=== PATIENT | male | born 1955 | race Caucasian/White ===

== ENCOUNTER 2016-04-25 11:57 | Inpatient (IN) ==
[2016-04-25] MEDS ORDERED: IPRATROPIUM/ALBUTEROL 3 ML AMPUL.NEB NEB ONE (12:02)
[2016-04-25] MEDS ORDERED: methylPREDNISolone SOD SUCC 125 MG/2 ML VIAL IV ONE (12:24)
--- NOTE | 2016-04-25 12:31 | Emergency Department Note ---
SOB HPI - General Chief Complaint: Shortness of Breath/Dyspnea Stated Complaint: Shortness of breath Time Seen by Provider: 04/25/16 12:20 Source: patient, EMS Mode of arrival: EMS Limitations: no limitations - History of Present Illness 60-year-old male with a history of COPD has been seen by his new physician, Dr. Hernandez, and she prescribed a prednisone taper.. He is only using MDI albuterol. These were called as he's had increased shortness of breath. Is given 2 albuterol treatments and patient arrived patient was given a DuoNeb and Solu-Medrol. Patient has been having wheezing his current temperature is 99.1 . She coughing up yellowish-green sputum. pt states he quit tobacco 5 years ago but heavy smoker prior. 40 pack year hx or greater. - Related Data Home Medications Medication Instructions Recorded Confirmed albuterol sulfate INHALATION 12/13/15 04/22/16 mometasone 200 mcg/actuation HFA 200 mcg INHALATION BID g 12/13/15 04/22/16 aerosol inhaler tamsulosin 0.4 mg capsule 0.4 mg PO QDAY 12/13/15 04/22/16 tiotropium 2.5 mcg-olodaterol 2.5 See Patient Comments INHALATION 12/13/1504/22 mcg/actuation mist for inhalation QID g Previous Rx's Medication Instructions Recorded azithromycin 250 mg tablet 250 mg PO Q24H #6 tab 04/22/16 benzonatate 100 mg capsule 100 mg PO TID PRN #30 cap 04/22/16 prednisone 10 mg tablet 0 PO .COMPLEX #30 tab 04/22/16 Allergies Allergy/AdvReac Type Severity Reaction Status Date / Time Penicillins Allergy Unknown unk Verified 04/25/16 12:01 Review of Systems All systems ED: reviewed and negative except as stated. Eyes: Denies: eye pain ENT ED: Denies: ear pain Cardiovascular: Denies: chest pain, palpitations Respiratory: Reports: cough, wheezes Gastrointestinal: Denies: abdominal pain, nausea Genitourinary: Denies: urgency, dysuria Past Medical History - Past Medical History Medical history: Reports: COPD Surgical history ED: Reports: other (back, bladder) Family history: Reports: non-contributory - Social History smoking status: Former smoker Alcohol use: Reports: Occasionally Drug use: Reports: none Physical Exam - General Limitations: no limitations General appearance: alert - Head Head exam: atraumatic, normocephalic - Eye Eye exam: Present: normal appearance, PERRL - ENT ENT exam: normal exam, normal oropharynx - Neck Neck exam: Present: normal inspection, full ROM. Absent: trachea midline - Chest Chest inspection: Present: normal inspection - Respiratory Respiratory exam: Present: normal lung sounds bilaterally. Absent: respiratory distress, wheezes - Cardiovascular Cardiovascular exam: Present: regular rate, normal rhythm. Absent: bradycardia , tachycardia - Abdominal Exam Abdominal exam: Present: soft. Absent: distention, tenderness, guarding, rebound, rigidity - Extremities Exam Extremities exam: Present: normal inspection, full ROM. Absent: tenderness - Back Exam Back exam: Present: normal inspection, full ROM. Absent: tenderness - Neurological Exam Neurological exam: Present: alert, oriented X3, CN II-XII intact - Psychiatric Psychiatric exam: Present: normal affect, normal mood - Skin Skin exam: Present: warm, dry Course Vital Signs Temperature 99.1 F 04/25/16 11:58 Pulse Rate 133 H 04/25/16 11:58 Respiratory Rate 16 04/25/16 11:58 Blood Pressure 153/82 04/25/16 11:58 Pulse Oximetry (%) 84 L 04/25/16 11:58 Temperature 99.5 F 04/25/16 12:15 Pulse Rate 115 H 04/25/16 13:40 Respiratory Rate 18 04/25/16 13:40 Blood Pressure 156/88 04/25/16 13:40 Pulse Oximetry (%) 92 04/25/16 13:40 Shortness of Breath/Dyspnea - [facility] Narrative Medical decision making narrative: wbc is 13,300. Chest shows bilat infiltratrates. Lactic is 1.3 blood cultures patsy and pt started on rocephlin and levaquin. ABG's done case discussed with Dr Navarro pt admitted for pneumonia - Lab Data Result diagrams: 04/25/16 12:06 04/25/16 12:06 Lab Results 04/25/16 04/25/16 04/25/16 Range/Units 12:06 12:06 12:06 WBC 13.3 H (4.5-11.0) K/mcL RBC 5.45 (4.50-5.90) M/mcL Hgb 15.8 (13.5-16.5) g/dL Hct 48.6 (41.0-55.0) % MCV 89.2 (80.0-100.0) fL MCH 29.0 (26.0-34.0) pg MCHC 32.5 (31.0-36.0) g/dL RDW 14.3 (11.5-14.5) % Plt Count 279 (140-440) K/mcL MPV 8.3 (7.4-10.4) fL Gran % 79.1 H (38.0-78.0) % Lymph % (Auto) 11.1 L (15.5-49.0) % [place] % (Auto) 9.5 H (1.0-9.0) % Eos % (Auto) 0 (0.0-7.0) % Baso % (Auto) 0.3 (0.0-2.0) % Gran # 10.5 H (1.8-8.0) K/mcL Lymph # 1.5 (1.5-4.8) K/mcL [place] # 1.3 H (0.1-0.9) K/mcL Eos # 0 (0.0-0.7) K/mcL Baso # 0 (0.0-0.3) K/mcL Band Neutrophils % VBG Lactic Acid 1.6 (0.5-2.2) mmol/L Sodium 138 (133-145) mmol/L Potassium 4.0 (3.3-5.1) mmol/L Chloride 96 (96-108) mmol/L Carbon Dioxide 25 (22-30) mmol/L Anion Gap 17.0 H (8-16) BUN 20 (8-23) mg/dl Creatinine 1.4 H (0.7-1.2) mg/dl GFR Calculation 53 Glucose 122 H (70-105) mg/dL Calcium 9.3 (8.6-10.4) mg/dl Total Bilirubin 0.5 (0.0-1.0) mg/dL AST 33 (0-37) U/l ALT 36 (0-40) U/l Alkaline Phosphatase 75 (39-117) U/L Total Protein 7.4 (5.9-8.4) gm/dL Albumin 4.0 (3.2-5.2) gm/dL Globulin 3.4 (2.2-3.7) gm/dL Albumin/Globulin Ratio 1.2 (1.0-2.3) 04/25/16 Range/Units 12:06 WBC (4.5-11.0) K/mcL RBC (4.50-5.90) M/mcL Hgb (13.5-16.5) g/dL Hct (41.0-55.0) % MCV (80.0-100.0) fL MCH (26.0-34.0) pg MCHC (31.0-36.0) g/dL RDW (11.5-14.5) % Plt Count (140-440) K/mcL MPV (7.4-10.4) fL Gran % (38.0-78.0) % Lymph % (Auto) (15.5-49.0) % [place] % (Auto) (1.0-9.0) % Eos % (Auto) (0.0-7.0) % Baso % (Auto) (0.0-2.0) % Gran # (1.8-8.0) K/mcL Lymph # (1.5-4.8) K/mcL [place] # (0.1-0.9) K/mcL Eos # (0.0-0.7) K/mcL Baso # (0.0-0.3) K/mcL Band Neutrophils % Not Reportable VBG Lactic Acid (0.5-2.2) mmol/L Sodium (133-145) mmol/L Potassium (3.3-5.1) mmol/L Chloride (96-108) mmol/L Carbon Dioxide (22-30) mmol/L Anion Gap (8-16) BUN (8-23) mg/dl Creatinine (0.7-1.2) mg/dl GFR Calculation Glucose (70-105) mg/dL Calcium (8.6-10.4) mg/dl Total Bilirubin (0.0-1.0) mg/dL AST (0-37) U/l ALT (0-40) U/l Alkaline Phosphatase (39-117) U/L Total Protein (5.9-8.4) gm/dL Albumin (3.2-5.2) gm/dL Globulin (2.2-3.7) gm/dL Albumin/Globulin Ratio (1.0-2.3) Disposition Clinical Impression: Bilateral pneumonia Disposition: Xfer As Inpt ([facility]) Condition: Good Referrals: Elva Hernandez DO [Primary Care Provider] -
[2016-04-25] MEDS ORDERED: cefTRIAXone 1 GM in DEXTROSE 5% IN WATER 50 ML IV ONE (12:52)
[2016-04-25 12:54] LABS: Basophils # (Auto) 0 K/mcL (0.0-0.3); Basophils % (Auto) 0.3 % (0.0-2.0); Eosinophils # (Auto) 0 K/mcL (0.0-0.7); Eosinophils % (Auto) 0 % (0.0-7.0); Granulocytes % (Auto) 79.1 % (38.0-78.0); Lymphocytes # (Auto) 1.5 K/mcL (1.5-4.8); Lymphocytes % (Auto) 11.1 % (15.5-49.0); Mean Cell Volume 89.2 fL (80.0-100.0); Mean Corpuscular HGB Conc 32.5 g/dL (31.0-36.0); Monocytes # (Auto) 1.3 K/mcL (0.1-0.9); Monocytes % (Auto) 9.5 % (1.0-9.0); Platelet Count 279 K/mcL (140-440); RBC 5.45 M/mcL (4.50-5.90); Red Cell Distribution Width 14.3 % (11.5-14.5)
[2016-04-25] MEDS ORDERED: LEVOFLOXACIN 500 MG/100 ML BAG IV ONE (12:55)
[2016-04-25 13:16] LABS: ALT/SGPT 36 U/l (0-40); Albumin/Globulin Ratio 1.2 (1.0-2.3); Alkaline Phosphatase 75 U/L (39-117); Blood Urea Nitrogen 20 mg/dl (8-23)
[2016-04-25 13:47] LABS: Band Neutrophils % 25 % (0-10); Lymphocytes % 5 % (15-49); Metamyelocytes % 1 % (0-0); Monocytes % (Manual) 8 % (1-9); Platelet Estimate NORMAL (NORMAL); RBC Morphology NORMAL (NORMAL); Segmented Neutrophils % 54 % (38-78)
[2016-04-25] MEDS ORDERED: 0.9 % SODIUM CHLORIDE 1,000 ML IV ONE (14:22)
--- NOTE | 2016-04-25 15:24 | XRay Report ---
HISTORY: Reason for Exam:dyspnea FINDINGS: Moderately severe emphysema is present, predominantly involving the upper lobes. There are bands of scar or atelectasis in the right middle and right lower lobes. No consolidating infiltrate is present and there is no evidence of a lung mass, congestive heart failure or pleural effusion. The heart size is normal. No prior study is available for comparison. IMPRESSION: Moderately severe emphysema with superimposed scar or atelectasis in the right middle and lower lobe. Interpreted and Authenticated by: Eddie Farnsworth 04/25/16
[2016-04-25] MEDS ORDERED: traZODone HCL 50 MG TABLET PO PRN (15:36)
[2016-04-25] MEDS ORDERED: 0.9 % SODIUM CHLORIDE 1,000 ML IV SCH (15:36)
[2016-04-25] MEDS ORDERED: ONDANSETRON 4 MG/2 ML VIAL IV PRN (15:36)
[2016-04-25] MEDS ORDERED: NOREPINEPHRINE BITARTRATE 16 MG in 0.9 % SODIUM CHLORIDE 234 ML IV PRN (15:36)
[2016-04-25] MEDS ORDERED: POTASSIUM CHLORIDE 20 MEQ PACKET PO PRN (15:36)
[2016-04-25] MEDS ORDERED: ACETAMINOPHEN 325 MG TABLET PO PRN (15:36)
[2016-04-25] MEDS ORDERED: MAGNESIUM SULFATE 2 GM/50 ML BAG IV PRN (15:36)
[2016-04-25] MEDS ORDERED: BISACODYL 10 MG SUPP.RECT PR PRN (15:36)
[2016-04-25] MEDS: 0.9 % SODIUM CHLORIDE 1,000 ML IV SCH (15:48)
[2016-04-25] MEDS ORDERED: LEVOFLOXACIN 250 MG/50 ML BAG IV ONE (16:00)
[2016-04-25 16:05] LABS: C-Reactive Protein 21.9 mg/dl (0.0-0.8)
[2016-04-25] MEDS: IPRATROPIUM/ALBUTEROL 3 ML AMPUL.NEB NEB SCH ×3 (17:18→21:45)
[2016-04-25] MEDS: PIPERACILLIN SODIUM/TAZOBACTAM 3.375 GM in DEXTROSE 5% IN WATER 50 ML IV SCH ×2 (17:42→23:39)
[2016-04-25] MEDS: methylPREDNISolone SOD SUCC 125 MG/2 ML VIAL IV SCH ×2 (19:59→23:39)
[2016-04-25] MEDS: HEPARIN 5,000 UNIT/ML VIAL SQ SCH (20:49)
[2016-04-25] MEDS: DOCUSATE SODIUM 100 MG CAPSULE PO SCH (20:50)
[2016-04-25] MEDS: SENNOSIDES/DOCUSATE SODIUM 1 TAB TABLET PO SCH (20:50)
[2016-04-25] MEDS: 0.9 % SODIUM CHLORIDE 10 ML SYRINGE IV SCH (20:55)
[2016-04-25] MEDS: BUDESONIDE 0.5 MG/2 ML AMPUL.NEB NEB SCH (21:45)
[2016-04-26] MEDS: 0.9 % SODIUM CHLORIDE 1,000 ML IV SCH ×2 (01:48→11:50)
[2016-04-26] MEDS: IPRATROPIUM/ALBUTEROL 3 ML AMPUL.NEB NEB SCH ×6 (03:44→22:32)
[2016-04-26] MEDS: PIPERACILLIN SODIUM/TAZOBACTAM 3.375 GM in DEXTROSE 5% IN WATER 50 ML IV SCH ×3 (05:10→20:00)
[2016-04-26] MEDS: 0.9 % SODIUM CHLORIDE 10 ML SYRINGE IV SCH ×3 (05:12→20:43)
[2016-04-26] MEDS: methylPREDNISolone SOD SUCC 125 MG/2 ML VIAL IV SCH ×3 (05:13→17:44)
[2016-04-26] MEDS: BUDESONIDE 0.5 MG/2 ML AMPUL.NEB NEB SCH ×2 (07:16→19:46)
[2016-04-26] MEDS: PANTOPRAZOLE 40 MG TABLET PO SCH (07:26)
[2016-04-26 07:28] LABS: Mean Cell Volume 89.1 fL (80.0-100.0); Mean Corpuscular HGB Conc 32.5 g/dL (31.0-36.0); Mean Corpuscular Hemoglobin 28.9 pg (26.0-34.0); Platelet Count 227 K/mcL (140-440); RBC 5.77 M/mcL (4.50-5.90); Red Cell Distribution Width 13.7 % (11.5-14.5)
[2016-04-26 07:42] LABS: ALT/SGPT 44 U/l (0-40); Albumin 3.8 gm/dL (3.2-5.2); Albumin/Globulin Ratio 1.1 (1.0-2.3); Alkaline Phosphatase 81 U/L (39-117); Bilirubin,Direct < 0.2 mg/dL (0.0-0.3); Blood Urea Nitrogen 21 mg/dl (8-23); Gamma Glutamyl Transpeptidase 32 U/L (8-61); Magnesium 2.4 mg/dL (1.6-2.5); Phosphorous 4.6 mg/dL (2.7-4.5); Uric Acid 4.3 mg/dL (2.5-8.0)
[2016-04-26 08:24] LABS: Band Neutrophils % 16 % (0-10); Eosinophils % (Manual) 1 % (0-7); Lymphocytes % 7 % (15-49); Monocytes % (Manual) 2 % (1-9); Platelet Estimate NORMAL (NORMAL); RBC Morphology NORMAL (NORMAL); Segmented Neutrophils % 71 % (38-78)
[2016-04-26] MEDS: HEPARIN 5,000 UNIT/ML VIAL SQ SCH ×2 (08:59→20:39)
[2016-04-26] MEDS: DOCUSATE SODIUM 100 MG CAPSULE PO SCH ×2 (08:59→20:39)
[2016-04-26] MEDS: MULTIVIT,THER IRON,CA,FA & MIN 1 TABLET PO SCH (08:59)
--- NOTE | 2016-04-26 09:22 | History and Physical Report ---
DATE OF ADMISSION: 04/25/2016 REASON FOR ADMISSION: Worsening shortness of breath, weakness, and fever. HISTORY OF CHIEF COMPLAINT: The patient is a 58-year-old with known history of COPD secondary to smoking. He has been in his baseline state of health until roughly 1 week prior to presentation. The patient noticed increasing shortness of breath and sore throat. He was seen by his primary care physician and was prescribed a Prednisone taper along with Zithromax. The patient improved for a couple of days; however, over the last couple of days the patient has gotten significantly weak with declining functional status, increasing shortness of breath, and is unable to sleep. His shortness of breath got to the point he could barely talk and he came to the [facility] ER where initial workup was significant for severe sepsis with a white count over 13,000 with 35% bands along with tachycardia at 130s and increased difficulty breathing. Hospitalist Service was consulted. The patient received antibiotics after blood cultures were drawn. At the time of examination, the patient was alert. He was able to provide most of his history. He is dyspneic, but appears nondistressed. Patient denies exposure to sick contacts. He is up to date on pneumonia vaccine. He denies joint pain, rash, photophobia, headache, neck stiffness. He further denies recent ear or nose discharge or sinus symptoms. He denies active smoking. He denies diarrhea, bloody stool, weight loss or lymphedema. He also denies rash, joint swelling or changes in medications. REVIEW OF SYSTEMS: Ten-point review of system was performed and negative except the ones discussed above. PAST MEDICAL HISTORY: 1. Significant for history of bladder frequency. 2. COPD. 3. BPH. 4. Degenerative joint disease. PAST SURGICAL HISTORY: 1. History of bladder surgery 2003. 2. C7-T1 fusion 1998. 4. Discectomy in 1990. FAMILY HISTORY: Significant for mother with lung cancer. Father with CVA. SOCIAL HISTORY: The patient lives in [place]. He is single. He quit smoking a long time ago. No history of alcoholism or substance abuse. CODE STATUS: FULL CODE. He sees primary care physician, Elva Almaraz D.O. ALLERGIES: PENICILLIN. PHYSICAL EXAMINATION: GENERAL: The patient is minimally distressed, but short of breath. BMI 32. Height 6 feet. VITAL SIGNS: Blood pressure 142/105, respiratory rate 20, temperature 99.5, pulse 130, sats 84% on room air improving to 90% on 3 liters of oxygen. HEENT: Pupils symmetric and reactive. Oral cavity is dry. No ear or nose discharge. Head is normocephalic and atraumatic. NECK: No lymphadenopathy. HEART: S1, S2, tachycardia. ESM grade 1. No radiation. CHEST: Bilateral prolonged expiratory phase with expiratory rhonchi. Diminished air movement. ABDOMEN: Soft and nontender. LOWER EXTREMITIES: No cyanosis or clubbing. No joint swelling. SKIN: No suspicious lesions. PSYCHIATRIC: Alert and cooperative, mild anxiety. No hallucination. NEURO: Nonfocal, moving all 4 extremities on a limited neuro exam. Normal higher function. LABS AND IMAGING: White count 13.3, hemoglobin 15.8, bands 25%. Lactic acid 1.6, sodium 138, potassium 4, creatinine 1.4, BUN 20. LFTs unremarkable. X-ray chest: Moderate severe emphysema with superimposed atelectasis/pneumonia right middle and lower lobe. ASSESSMENT AND PLAN: This is a 60-year-old with history of COPD admitted with severe sepsis and pneumonia. 1. Severe sepsis with end organ dysfunction with elevated creatinine. The patient will be managed per surviving sepsis guidelines and crystalloids along with antibiotics after cultures have been drawn. Continue close hemodynamic monitoring and treatment of the primary etiology. 2. Right middle lower lobe community-acquired pneumonia. Start patient on broad antibiotic coverage and deescalate based on cultures. 3. Hypoxic respiratory failure. Start noninvasive ventilation. 4. COPD exacerbation secondary to above. Continue steroids, bronchodilators and pulmonary toilet. 5. Mild HILARIA secondary to sepsis. Continue monitoring renal function. PLAN FOR TODAY: 1. Admit in inpatient telemetry in light of severe sepsis and acute kidney injury. 2. Pneumonia management. 3. COPD management per guidelines. 4. Noninvasive ventilation in light of increasing work of breathing. 5. Serial blood gas and chest imaging. critical care time spent over 35 minutes on blood gas, imaging, labs review along with management of noninvasive ventilation. AA:urban Job ID: [id number] Doc ID: [id number] Vasquez Hernandez DO MTDD
[2016-04-26] MEDS: LEVOFLOXACIN 750 MG/150 ML BAG IV SCH (10:07)
--- NOTE | 2016-04-26 10:09 | Internal Med Progress Note ---
Medical - PN: Subj Patient information: Note initiated : 04/26/16 at 10:03 am Service Date, if different from initiated Date: [] Patient: Alhaji Cedillo 60 y/o M admitted on 04/25/16 for Shortness of breath. Chief Complaint: [] Interval history: 04/25- 60-year-old with a history of COPD admitted with with severe sepsis with acute organ dysfunction/right middle and lower lobe infiltrate/pneumonia, hypoxic respiratory failure along with COPD exacerbation. White count 13.3. ABG 7.39/52/63 on 4 L oxygen. admitted to telemetry. BiPAP for increased work of breathing. Continue steroids and antibiotics and close monitoring 04/26-patient unable to tolerate BiPAP due to increase work of breathing. However tachycardia improving from 130-100. On 3 L oxygen. very dyspneic and labored. Tachypneic at30s to 40s. On IV steroids and broad-spectrum antibiotics and bronchodilators. Continue close monitoring. White count down from 13.3-10 . Improving bandemia. T-Max 99 - Constitutional Vitals: Vital Signs Temp Pulse Resp BP Pulse Ox 98.1 F 102 H 16 124/80 94 04/26/16 07:30 04/26/16 07:28 04/26/16 07:30 04/26/16 07:30 04/26/16 07:30 Period Temp Pulse Resp BP Sys/Agarwal Pulse Ox Last 24 Hr 97.6 F-98.9 F 76-106 16-220 124-148/74-89 87-96 Intake and Output 04/25/16 04/26/16 04/26/16 21:59 05:59 13:59 Intake Total 630 / 1180 1490 / 1490 Output Total 400 / 400 1725 / 1725 Balance 230 / 780 -235 / -235 Weight 252 lb 8 oz Intake & Output: Intake & Output 04/25/16 04/26/16 04/26/16 21:59 05:59 13:59 Intake Total 630 / 1180 1490 / 1490 Output Total 400 / 400 1725 / 1725 Balance 230 / 780 -235 / -235 Weight 252 lb 8 oz Intake: IV 170 / 170 1030 / 1030 Sodium Chloride 0.9% 1, 70 / 70 930 / 930 000 ml @ 100 mls/hr IV . Q10H AB Rx#:[id number] Dextrose 5% in Water 50 50 / 50 100 / 100 ml @ 100 mls/hr IV Q6H [facility] with Zosyn 3.375 gm Rx#:[id number] Oral 460 / 460 460 / 460 Output: Void Amount 400 / 400 1725 / 1725 Other: Meal Dinner Percent of Meal Consumed 100% Feeding Ability Independent General appearance: cooperative, moderate distress (SOB) Exam: alert oriented Fatigued Labored breathing Nondistended abdomen No pallor Medical - PN: Obj Da - Labs CBC & Chem 7: 04/26/16 04:45 04/26/16 04:45 Labs: Abnormal Lab Results 04/26/16 04/26/16 04:45 04:45 Hgb 16.7 H Band Neutrophils % 16 H Lymphocytes % 7 L Reactive Lymphocytes 3 H Anion Gap 17.0 H Creatinine 1.3 H Glucose 129 H Phosphorus 4.6 H AST 39 H ALT 44 H Lactate Dehydrogenase 336 H Meds: Medications Acetaminophen (Tylenol) 650 mg PO Q4-6HP PRN PRN Reason: PAIN/FEVER > 101 Albuterol/Ipratropium (Duoneb) 3 ml NEB Q4HRT [facility] Last Admin: 04/26/16 07:16 Dose: 3 ml Bisacodyl (Dulcolax) 10 mg LA Q2-3DAYS PRN PRN Reason: Constipation Budesonide (Pulmicort) 0.5 mg NEB Q12 [facility] Last Admin: 04/26/16 07:16 Dose: 0.5 mg Docusate Sodium (Colace) 100 mg PO BID [facility] Last Admin: 04/26/16 08:59 Dose: 100 mg Guaifenesin/Codeine Phosphate (Robitussin Ac) 10 ml PO Q4HP PRN PRN Reason: Cough Heparin Sodium (Porcine) (Heparin) 5,000 unit SQ Q12 [facility] Last Admin: 04/26/16 08:59 Dose: 5,000 unit Levofloxacin (Levaquin) 750 mg in 150 mls @ 100 mls/hr IV Q24H [facility] Magnesium Sulfate (Magnesium Sulfate) 2 gm in 50 mls @ 50 mls/hr IV UD PRN PRN Reason: MG = or < 1.7 Norepinephrine Bitartrate 16 (mg/ Sodium Chloride) 250 mls @ 9.37 mls/hr IV Q24HP PRN; Protocol; 10 MCG/MIN PRN Reason: Hypotension Sodium Chloride (Sodium Chloride 0.9%) 1,000 mls @ 100 mls/hr IV .Q10H [facility] Last Admin: 04/26/16 01:48 Dose: 100 mls/hr Piperacillin Sod/Tazobactam (Sod 3.375 gm/ Dextrose) 50 mls @ 100 mls/hr IV Q6H [facility] Last Infusion: 04/26/16 05:42 Dose: Infused Iron Carb/Multivit/Lane/Folic Acid (Multivitamin W/Minerals) 1 tab PO DAILY [facility] Last Admin: 04/26/16 08:59 Dose: 1 tab Methylprednisolone Sodium Succinate (Solu-Medrol) 60 mg IV Q6 [facility] Last Admin: 04/26/16 05:13 Dose: 60 mg Ondansetron HCl (Zofran) 4 mg IV Q4-6HP PRN PRN Reason: Nausea And Vomiting Pantoprazole Sodium (Protonix) 40 mg PO QAMAC [facility] Last Admin: 04/26/16 07:26 Dose: 40 mg Potassium Chloride (Klor-Con) 40 meq PO DAILYP PRN PRN Reason: K+ < 3.5 Senna/Docusate Sodium (Senna Plus Tablet) 1 tab PO HS [facility] Last Admin: 04/25/16 20:50 Dose: Not Given Sodium Chloride (Saline Flush) 10 ml IV Q8 [facility] Last Admin: 04/26/16 05:12 Dose: 10 ml Trazodone HCl (Desyrel) 50 mg PO HSP PRN PRN Reason: Insomnia Medical - PN: A/P - Time Spent With Patient Total time spent is greater than 50% in coordination of care (as documented) at patient's floor/unit and/or counseling patient: 25 - 35 minutes (1) COPD with exacerbation Status: Acute Assessment and plan: * COPD exacerbation-Managed per guidelines including bronchodilators IV steroids. Unable tolerated BiPAP. * Hypoxic respiratory failure on 4 L oxygen-Unable tolerated BiPAP. Increase work of breathing. * right middle/lower lobe pneumonia-continue antibiotic coverage.continue pulmonary toilet * Severe sepsis secondary to above-improving white count and bandemia. * DVT prophylaxis on subcutaneous heparin * BPH on tamsulosin plan * Continue IV steroids and antibiotic/sbronchodilators * supplemental oxygen * Mechanical ventilation if patient deteriorating and impending respiratory failure due to work of breathing Current Visit: Yes Medical - PN: Qual - VTE Deep Vein Thrombosis/Pulmonary Embolism Present on Admission: No
[2016-04-26] MEDS ORDERED: VANCOMYCIN PER PHARMACY IV ONE (14:53)
[2016-04-26] MEDS: VANCOMYCIN 1,500 MG in 0.9 % SODIUM CHLORIDE 500 ML IV SCH (17:44)
[2016-04-26] MEDS: SENNOSIDES/DOCUSATE SODIUM 1 TAB TABLET PO SCH (20:39)
[2016-04-26] MEDS: TAMSULOSIN 0.4 MG CAPSULE PO SCH (21:00)
[2016-04-27] MEDS: PIPERACILLIN SODIUM/TAZOBACTAM 3.375 GM in DEXTROSE 5% IN WATER 50 ML IV SCH ×4 (00:41→17:45)
[2016-04-27] MEDS: methylPREDNISolone SOD SUCC 125 MG/2 ML VIAL IV SCH ×2 (00:41→05:18)
[2016-04-27] MEDS: IPRATROPIUM/ALBUTEROL 3 ML AMPUL.NEB NEB SCH ×6 (03:21→22:58)
[2016-04-27] MEDS: VANCOMYCIN 1,500 MG in 0.9 % SODIUM CHLORIDE 500 ML IV SCH (03:21)
[2016-04-27] MEDS: 0.9 % SODIUM CHLORIDE 10 ML SYRINGE IV SCH ×4 (05:13→20:38)
[2016-04-27] MEDS: PANTOPRAZOLE 40 MG TABLET PO SCH (06:54)
[2016-04-27] MEDS: guaiFENesin/CODEINE 10 ML UDC PO PRN ×2 (06:54→10:49)
[2016-04-27] MEDS: BUDESONIDE 0.5 MG/2 ML AMPUL.NEB NEB SCH ×2 (07:38→19:10)
[2016-04-27 08:01] LABS: Mean Cell Volume 92.4 fL (80.0-100.0); Mean Corpuscular HGB Conc 31.2 g/dL (31.0-36.0); Mean Corpuscular Hemoglobin 28.9 pg (26.0-34.0); Platelet Count 280 K/mcL (140-440); RBC 5.16 M/mcL (4.50-5.90); Red Cell Distribution Width 14.4 % (11.5-14.5)
[2016-04-27 09:10] LABS: ALT/SGPT 48 U/l (0-40); Albumin 3.7 gm/dL (3.2-5.2); Albumin/Globulin Ratio 1.6 (1.0-2.3); Alkaline Phosphatase 70 U/L (39-117); Bilirubin,Direct < 0.2 mg/dL (0.0-0.3); Blood Urea Nitrogen 22 mg/dl (8-23); Gamma Glutamyl Transpeptidase 26 U/L (8-61); Magnesium 2.3 mg/dL (1.6-2.5); Phosphorous 4.5 mg/dL (2.7-4.5); Uric Acid 3.1 mg/dL (2.5-8.0)
--- NOTE | 2016-04-27 09:10 | XRay Report ---
HISTORY: Reason for Exam:Interval Change- PNA interval change FINDINGS: Emphysema and pulmonary fibrosis are present. The superimposed atelectasis in the right lower lobe seen on 04/25/16 has improved significantly. There is some underlying scar tissue in the right lower lobe. There is a stable band of scar tissue paralleling the minor fissure. The heart size and pulmonary vascular normal. No pleural effusion is present. IMPRESSION: COPD with pulmonary fibrosis and resolving discoid atelectasis in the right lower lobe Interpreted and Authenticated by: Eddie Farnsworth 04/27/16
[2016-04-27] MEDS: HEPARIN 5,000 UNIT/ML VIAL SQ SCH ×2 (09:13→20:37)
[2016-04-27] MEDS: DOCUSATE SODIUM 100 MG CAPSULE PO SCH ×2 (09:13→20:37)
[2016-04-27] MEDS: MULTIVIT,THER IRON,CA,FA & MIN 1 TABLET PO SCH (09:13)
[2016-04-27] MEDS: LEVOFLOXACIN 750 MG/150 ML BAG IV SCH (09:14)
[2016-04-27 09:49] LABS: Band Neutrophils % 12 % (0-10); Lymphocytes % 3 % (15-49); Monocytes % (Manual) 1 % (1-9); Myelocytes % 1 % (0-0); Platelet Estimate NORMAL (NORMAL); RBC Morphology NORMAL (NORMAL); Segmented Neutrophils % 83 % (38-78)
[2016-04-27] MEDS ORDERED: FLU VACC QS2016-17 36MOS UP/PF 60 MCG/0.5 ML SYRINGE IM ONE (10:00)
[2016-04-27] MEDS ORDERED: MAGNESIUM HYDROXIDE 30 ML ORAL.SUSP PO PRN (10:42)
[2016-04-27] MEDS ORDERED: MAGNESIUM HYDROXIDE 30 ML ORAL.SUSP ONE (10:57)
--- NOTE | 2016-04-27 11:09 | Internal Med Progress Note ---
Medical - PN: Subj Patient information: Note initiated : 04/27/16 at 11:07 am Service Date, if different from initiated Date: [] Patient: Alhaji Cedillo 60 y/o M admitted on 04/25/16 for Shortness of breath. Chief Complaint: [] Interval history: 04/25- 60-year-old with a history of COPD admitted with with severe sepsis with acute organ dysfunction/right middle and lower lobe infiltrate/pneumonia, hypoxic respiratory failure along with COPD exacerbation. White count 13.3. ABG 7.39/52/63 on 4 L oxygen. admitted to telemetry. BiPAP for increased work of breathing. Continue steroids and antibiotics and close monitoring 04/26-patient unable to tolerate BiPAP due to increase work of breathing. However tachycardia improving from 130-100. On 3 L oxygen. very dyspneic and labored. Tachypneic at30s to 40s. On IV steroids and broad-spectrum antibiotics and bronchodilators. Continue close monitoring. White count down from 13.3-10 . Improving bandemia. T-Max 99 1/- patient feeling significantly short of breath however improved work of breathing tachycardia tachypnea oh last 24 hours. White count jumped from 10.8- 19.5 however improving bandemia. patient has been afebrile. improving chest x- ray with resolving atelectasis/infiltrate. Pulmonary fibrosis noted. labs and imaging discussed with patient including follow-up appointment with pulmonology for expert management of primary fibrosis/COPD. Continue Antibiotics/steroids and bronchodilators along with physical therapy. improving renal function - Constitutional Vitals: Vital Signs Temp Pulse Resp BP Pulse Ox 98.9 F 90 16 145/98 91 04/27/16 07:15 04/27/16 07:51 04/27/16 07:51 04/27/16 07:15 04/27/16 07:51 Period Temp Pulse Resp BP Sys/Agarwal Pulse Ox Last 24 Hr 97.1 F-98.9 F 85-108 16-28 126-145/72-98 91-95 Intake and Output 04/26/16 04/27/16 04/27/16 21:59 05:59 13:59 Intake Total 1200 / 1200 1050 / 1050 787 / 787 Output Total 400 / 400 850 / 850 Balance 800 / 800 200 / 200 787 / 787 Weight 258 lb 8 oz 258 lb 8 oz Patient Weight 04/28/16 05:59 Weight 258 lb 8 oz Intake & Output: Intake & Output 04/26/16 04/27/16 04/27/16 21:59 05:59 13:59 Intake Total 1200 / 1200 1050 / 1050 787 / 787 Output Total 400 / 400 850 / 850 Balance 800 / 800 200 / 200 787 / 787 Weight 258 lb 8 oz 258 lb 8 oz Intake: IV 600 / 600 550 / 550 787 / 787 Sodium Chloride 0.9% 1, 0 / 0 737 / 737 000 ml @ 50 mls/hr IV . Q20H AB Rx#:[id number] Dextrose 5% in Water 50 100 / 100 50 / 50 50 / 50 ml @ 100 mls/hr IV Q6H AB with Zosyn 3.375 gm Rx#:[id number] Sodium Chloride 0.9% 500 500 / 500 500 / 500 ml @ 333.3 mls/hr IV Q12H AB with Vancomycin 1, 500 mg Rx#:[id number] Oral 600 / 600 500 / 500 Output: Void Amount 400 / 400 850 / 850 Other: Meal Dinner Percent of Meal Consumed 75% General appearance: cooperative, no acute distress Exam: alert oriented Labored pursed lip breathing Mild anxiety no lymphedema Medical - PN: Obj Da - Labs CBC & Chem 7: 04/27/16 05:22 04/27/16 05:22 Labs: Abnormal Lab Results 04/27/16 04/27/16 04/26/16 05:22 05:22 04:45 WBC 19.5 H Hgb Seg Neutrophils % 83 H Band Neutrophils % 12 H Lymphocytes % 3 L Myelocytes % 1 H Reactive Lymphocytes Anion Gap 17.0 H 17.0 H Creatinine 1.3 H Glucose 127 H 129 H Phosphorus 4.6 H AST 39 H ALT 48 H 44 H Lactate Dehydrogenase 383 H 336 H 04/26/16 04:45 WBC Hgb 16.7 H Seg Neutrophils % Band Neutrophils % 16 H Lymphocytes % 7 L Myelocytes % Reactive Lymphocytes 3 H Anion Gap Creatinine Glucose Phosphorus AST ALT Lactate Dehydrogenase Meds: Medications Acetaminophen (Tylenol) 650 mg PO Q4-6HP PRN PRN Reason: PAIN/FEVER > 101 Albuterol/Ipratropium (Duoneb) 3 ml NEB Q4HRT AB Last Admin: 04/27/16 11:06 Dose: Not Given Bisacodyl (Dulcolax) 10 mg [place] Q2-3DAYS PRN PRN Reason: Constipation Budesonide (Pulmicort) 0.5 mg NEB Q12 [facility] Last Admin: 04/27/16 07:38 Dose: 0.5 mg Docusate Sodium (Colace) 100 mg PO BID [facility] Last Admin: 04/27/16 09:13 Dose: 100 mg Guaifenesin/Codeine Phosphate (Robitussin Ac) 10 ml PO Q4HP PRN PRN Reason: Cough Last Admin: 04/27/16 10:49 Dose: 10 ml Heparin Sodium (Porcine) (Heparin) 5,000 unit SQ Q12 [facility] Last Admin: 04/27/16 09:13 Dose: 5,000 unit Levofloxacin (Levaquin) 750 mg in 150 mls @ 100 mls/hr IV Q24H [facility] Last Admin: 04/27/16 09:14 Dose: 100 mls/hr Magnesium Sulfate (Magnesium Sulfate) 2 gm in 50 mls @ 50 mls/hr IV UD PRN PRN Reason: MG = or < 1.7 Norepinephrine Bitartrate 16 (mg/ Sodium Chloride) 250 mls @ 9.37 mls/hr IV Q24HP PRN; Protocol; 10 MCG/MIN PRN Reason: Hypotension Piperacillin Sod/Tazobactam (Sod 3.375 gm/ Dextrose) 50 mls @ 100 mls/hr IV Q6H [facility] Last Infusion: 04/27/16 06:05 Dose: Infused Sodium Chloride (Sodium Chloride 0.9%) 1,000 mls @ 50 mls/hr IV .Q20H [facility] Stop: 04/28/16 02:10 Last Infusion: 04/27/16 09:14 Dose: 0 mls/hr Vancomycin HCl 1,500 mg/ (Sodium Chloride) 500 mls @ 333.3 mls/hr IV Q12H [facility] Last Infusion: 04/27/16 05:13 Dose: Infused Iron Carb/Multivit/[place]/Folic Acid (Multivitamin W/Minerals) 1 tab PO DAILY [facility] Last Admin: 04/27/16 09:13 Dose: 1 tab Magnesium Hydroxide (Milk Of Magnesia) 30 ml PO BIDP PRN PRN Reason: Constipation Methylprednisolone Sodium Succinate (Solu-Medrol) 60 mg IV Q6 [facility] Last Admin: 04/27/16 05:18 Dose: 60 mg Ondansetron HCl (Zofran) 4 mg IV Q4-6HP PRN PRN Reason: Nausea And Vomiting Pantoprazole Sodium (Protonix) 40 mg PO QAMAC [facility] Last Admin: 04/27/16 06:54 Dose: 40 mg Mirabegron [ (Myrbetriq] 50 Mg Tab) 1 dose PO [facility] Last Admin: 04/26/16 20:39 Dose: 1 dose Mometasone Furoate [ (Asmanex Hfa] Inhaler) 4 dose INH BID [facility] Last Admin: 04/27/16 08:22 Dose: 4 dose Potassium Chloride (Klor-Con) 40 meq PO DAILYP PRN PRN Reason: K+ < 3.5 Senna/Docusate Sodium (Senna Plus Tablet) 1 tab PO [facility] Last Admin: 04/26/16 20:39 Dose: 1 tab Sodium Chloride (Saline Flush) 10 ml IV Q8 [facility] Last Admin: 04/27/16 05:13 Dose: Not Given Tamsulosin HCl (Flomax) 0.4 mg PO [facility] Last Admin: 04/26/16 21:00 Dose: 0.4 mg Trazodone HCl (Desyrel) 50 mg PO HSP PRN PRN Reason: Insomnia Medical - PN: A/P - Time Spent With Patient Total time spent is greater than 50% in coordination of care (as documented) at patient's floor/unit and/or counseling patient: 25 - 35 minutes (1) COPD with exacerbation Status: Acute Assessment and plan: * COPD exacerbation-Managed per guidelines with clinical improvement. lower IV steroids. * Hypoxic respiratory failure improving now on 3 L oxygen- continue bronchodilators/steroids * Right middle/lower lobe pneumonia- radiological and clinical improvement. * Severe sepsis secondary to above- worsening leukocytosis however improving bandemia. * coag-negative staph bacteremia-Likely contaminant. DC vancomycin * Mild HILARIA. Improving creatinine to 1.2 * DVT prophylaxis on subcutaneous heparin * BPH on tamsulosin plan * lower IV steroids and antibiotic/sbronchodilators * discontinue vancomycin * pre-existing medical condition management as above * Outpatient pulmonology follow-up on discharge Current Visit: Yes Medical - PN: Qual - VTE Deep Vein Thrombosis/Pulmonary Embolism Present on Admission: No
[2016-04-27] MEDS: TAMSULOSIN 0.4 MG CAPSULE PO SCH (20:37)
[2016-04-27] MEDS: SENNOSIDES/DOCUSATE SODIUM 1 TAB TABLET PO SCH (20:37)
[2016-04-28] MEDS: PIPERACILLIN SODIUM/TAZOBACTAM 3.375 GM in DEXTROSE 5% IN WATER 50 ML IV SCH ×5 (00:17→23:40)
[2016-04-28] MEDS: IPRATROPIUM/ALBUTEROL 3 ML AMPUL.NEB NEB SCH ×6 (02:24→23:11)
[2016-04-28 05:31] LABS: Mean Cell Volume 91.8 fL (80.0-100.0); Mean Corpuscular HGB Conc 31.3 g/dL (31.0-36.0); Mean Corpuscular Hemoglobin 28.7 pg (26.0-34.0); Platelet Count 316 K/mcL (140-440); RBC 5.24 M/mcL (4.50-5.90); Red Cell Distribution Width 14.7 % (11.5-14.5)
[2016-04-28] MEDS: 0.9 % SODIUM CHLORIDE 10 ML SYRINGE IV SCH ×5 (05:32→20:20)
[2016-04-28 06:09] LABS: ALT/SGPT 47 U/l (0-40); Albumin 3.7 gm/dL (3.2-5.2); Albumin/Globulin Ratio 1.2 (1.0-2.3); Alkaline Phosphatase 115 U/L (39-117); Bilirubin,Direct < 0.2 mg/dL (0.0-0.3); Blood Urea Nitrogen 20 mg/dl (8-23); Gamma Glutamyl Transpeptidase 29 U/L (8-61); Magnesium 2.5 mg/dL (1.6-2.5); Phosphorous 3.8 mg/dL (2.7-4.5); Uric Acid 3.2 mg/dL (2.5-8.0)
[2016-04-28 06:36] LABS: Anisocytosis 1+ (NONE SEEN); Band Neutrophils % 2 % (0-10); Lymphocytes % 14 % (15-49); Monocytes % (Manual) 3 % (1-9); Platelet Estimate NORMAL (NORMAL); RBC Morphology ABNORM (NORMAL); Segmented Neutrophils % 81 % (38-78)
[2016-04-28] MEDS: BUDESONIDE 0.5 MG/2 ML AMPUL.NEB NEB SCH ×2 (08:17→19:47)
[2016-04-28] MEDS: PANTOPRAZOLE 40 MG TABLET PO SCH (08:27)
[2016-04-28] MEDS: LEVOFLOXACIN 750 MG/150 ML BAG IV SCH (10:02)
[2016-04-28] MEDS: HEPARIN 5,000 UNIT/ML VIAL SQ SCH ×2 (10:03→20:19)
[2016-04-28] MEDS: methylPREDNISolone SOD SUCC 125 MG/2 ML VIAL IV SCH (10:03)
[2016-04-28] MEDS: MULTIVIT,THER IRON,CA,FA & MIN 1 TABLET PO SCH (10:04)
[2016-04-28] MEDS: DOCUSATE SODIUM 100 MG CAPSULE PO SCH ×2 (10:04→20:20)
[2016-04-28] MEDS: LORazepam 0.5 MG TABLET PO PRN ×2 (10:04→20:18)
--- NOTE | 2016-04-28 13:33 | Internal Med Progress Note ---
Medical - PN: Subj Patient information: Note initiated : 04/28/16 at 1:33 pm Service Date, if different from initiated Date: [] Patient: Alhaji Cedillo 60 y/o M admitted on 04/25/16 for Shortness of Breath/ Severe Sepsis, Pneumonia. Chief Complaint: [] Interval history: 04/25- 60-year-old with a history of COPD admitted with with severe sepsis with acute organ dysfunction/right middle and lower lobe infiltrate/pneumonia, hypoxic respiratory failure along with COPD exacerbation. White count 13.3. ABG 7.39/52/63 on 4 L oxygen. admitted to telemetry. BiPAP for increased work of breathing. Continue steroids and antibiotics and close monitoring 04/26-patient unable to tolerate BiPAP due to increase work of breathing. However tachycardia improving from 130-100. On 3 L oxygen. very dyspneic and labored. Tachypneic at30s to 40s. On IV steroids and broad-spectrum antibiotics and bronchodilators. Continue close monitoring. White count down from 13.3-10 . Improving bandemia. T-Max 99 1/- patient feeling significantly short of breath however improved work of breathing tachycardia tachypnea oh last 24 hours. White count jumped from 10.8- 19.5 however improving bandemia. patient has been afebrile. improving chest x- ray with resolving atelectasis/infiltrate. Pulmonary fibrosis noted. labs and imaging discussed with patient including follow-up appointment with pulmonology for expert management of primary fibrosis/COPD. Continue Antibiotics/steroids and bronchodilators along with physical therapy. improving renal function. April 28, 2016: Nurses report this patient has been intermittently agitated over the last 24 hours. He is occasionally refusing his nebulizer treatments, claiming they make him cough and feel more short of breath. He refuses BiPAP. When I first went in this morning, he asked me to leave him alone so she could sleep. When I went back later in the day, he was more awake and feeling a bit better. He says he understands that the nebulizers are probably helping him but he did not like the mask at all. He has been switched to a pipe type device , and is tolerating that better. he otherwise denies fever or chills, chest pain or palpitations, abdominal pain, nausea or vomiting or diarrhea, or dysuria - Constitutional Vitals: Vital Signs Temp Pulse Resp BP Pulse Ox 98.6 F 94 H 20 142/84 96 04/28/16 11:40 04/28/16 11:04 04/28/16 11:40 04/28/16 11:40 04/28/16 11:40 Period Temp Pulse Resp BP Sys/Agarwal Pulse Ox Last 24 Hr 97.8 F-98.6 F 84-102 14-24 142-170/69-90 90-97 Intake and Output 04/27/16 04/28/16 04/28/16 21:59 05:59 13:59 Intake Total 498 / 498 530 / 530 200 / 200 Output Total 700 / 700 300 / 300 775 / 775 Balance -202 / -202 230 / 230 -575 / -575 Weight 262 lb Intake & Output: Intake & Output 04/27/16 04/28/16 04/28/16 21:59 05:59 13:59 Intake Total 498 / 498 530 / 530 200 / 200 Output Total 700 / 700 300 / 300 775 / 775 Balance -202 / -202 230 / 230 -575 / -575 Weight 262 lb Intake: IV 98 / 98 50 / 50 200 / 200 Sodium Chloride 0.9% 1, 48 / 48 000 ml @ 50 mls/hr IV . Q20H AB Rx#:[id number] Dextrose 5% in Water 50 50 / 50 50 / 50 50 / 50 ml @ 100 mls/hr IV Q6H AB with Zosyn 3.375 gm Rx#:[id number] Oral 400 / 400 480 / 480 Output: Void Amount 700 / 700 300 / 300 775 / 775 Other: Meal Dinner Percent of Meal Consumed 100% Feeding Ability Independent # Voids 2 # Bowel Movements 0 0 Exam: the patient is awake and alert, and is currently in no acute distress. cardiac exam shows a regular rate and rhythm. Lung exam shows decreased breath sounds throughout, with soft end expiratory wheezes. Abdomen:Is soft and nontender. Extremities:Show trace pitting edema. Neurologic:The patient seems a bit anxious, but otherwise exam is nonfocal. Medical - PN: Obj Da - Labs CBC & Chem 7: 04/28/16 03:35 04/28/16 03:35 Labs: Abnormal Lab Results 04/28/16 04/28/16 04/27/16 03:35 03:35 15:05 WBC 19.1 H Hgb RDW 14.7 H Seg Neutrophils % 81 H Band Neutrophils % Lymphocytes % 14 L Myelocytes % Reactive Lymphocytes RBC Morphology Abnorm A Anisocytosis 1+ A Carbon Dioxide 37 H Anion Gap 7.0 L Creatinine 1.3 H Glucose 108 H Phosphorus AST ALT 47 H Lactate Dehydrogenase 329 H Triglycerides 198 H Vancomycin Trough 15.1 H 04/27/16 04/27/16 04/26/16 05:22 05:22 04:45 WBC 19.5 H Hgb RDW Seg Neutrophils % 83 H Band Neutrophils % 12 H Lymphocytes % 3 L Myelocytes % 1 H Reactive Lymphocytes RBC Morphology Anisocytosis Carbon Dioxide Anion Gap 17.0 H 17.0 H Creatinine 1.3 H Glucose 127 H 129 H Phosphorus 4.6 H AST 39 H ALT 48 H 44 H Lactate Dehydrogenase 383 H 336 H Triglycerides Vancomycin Trough 04/26/16 04:45 WBC Hgb 16.7 H RDW Seg Neutrophils % Band Neutrophils % 16 H Lymphocytes % 7 L Myelocytes % Reactive Lymphocytes 3 H RBC Morphology Anisocytosis Carbon Dioxide Anion Gap Creatinine Glucose Phosphorus AST ALT Lactate Dehydrogenase Triglycerides Vancomycin Trough blood cultures from April 25 are growing coag-negative staph, which is felt to be contaminant.blood cultures from April 26, are no growth so far. hest x-ray from April 27, show cOPD with pulmonary fibrosis and resolving discoid atelectasis in the right lower lobe. Meds: Medications Acetaminophen (Tylenol) 650 mg PO Q4-6HP PRN PRN Reason: PAIN/FEVER > 101 Last Admin: 04/28/16 12:20 Dose: 650 mg Albuterol/Ipratropium (Duoneb) 3 ml NEB Q4HRT [facility] Last Admin: 04/28/16 11:01 Dose: 3 ml Bisacodyl (Dulcolax) 10 mg [place] Q2-3DAYS PRN PRN Reason: Constipation Budesonide (Pulmicort) 0.5 mg NEB Q12 [facility] Last Admin: 04/28/16 08:17 Dose: 0.5 mg Docusate Sodium (Colace) 100 mg PO BID [facility] Last Admin: 04/28/16 10:04 Dose: 100 mg Guaifenesin/Codeine Phosphate (Robitussin Ac) 10 ml PO Q4HP PRN PRN Reason: Cough Last Admin: 04/27/16 10:49 Dose: 10 ml Heparin Sodium (Porcine) (Heparin) 5,000 unit SQ Q12 [facility] Last Admin: 04/28/16 10:03 Dose: 5,000 unit Levofloxacin (Levaquin) 750 mg in 150 mls @ 100 mls/hr IV Q24H [facility] Last Infusion: 04/28/16 11:35 Dose: Infused Magnesium Sulfate (Magnesium Sulfate) 2 gm in 50 mls @ 50 mls/hr IV UD PRN PRN Reason: MG = or < 1.7 Piperacillin Sod/Tazobactam (Sod 3.375 gm/ Dextrose) 50 mls @ 100 mls/hr IV Q6H [facility] Last Admin: 04/28/16 12:25 Dose: 100 mls/hr Iron Carb/Multivit/[employer]/Folic Acid (Multivitamin W/Minerals) 1 tab PO DAILY [facility] Last Admin: 04/28/16 10:04 Dose: 1 tab Lorazepam (Ativan) 0.5 mg PO Q4HP PRN PRN Reason: ANXIETY/SEDATION Last Admin: 04/28/16 10:04 Dose: 0.5 mg Magnesium Hydroxide (Milk Of Magnesia) 30 ml PO BIDP PRN PRN Reason: Constipation Methylprednisolone Sodium Succinate (Solu-Medrol) 60 mg IV DAILY [facility] Last Admin: 04/28/16 10:03 Dose: 60 mg Ondansetron HCl (Zofran) 4 mg IV Q4-6HP PRN PRN Reason: Nausea And Vomiting Pantoprazole Sodium (Protonix) 40 mg PO QAMAC [facility] Last Admin: 04/28/16 08:27 Dose: 40 mg Mirabegron [ (Myrbetriq] 50 Mg Tab) 1 dose PO HS [facility] Last Admin: 04/27/16 20:37 Dose: 1 dose Mometasone Furoate [ (Asmanex Hfa] Inhaler) 4 dose INH BID [facility] Last Admin: 04/28/16 10:04 Dose: 4 dose Potassium Chloride (Klor-Con) 40 meq PO DAILYP PRN PRN Reason: K+ < 3.5 Senna/Docusate Sodium (Senna Plus Tablet) 1 tab PO HS [facility] Last Admin: 04/27/16 20:37 Dose: 1 tab Sodium Chloride (Saline Flush) 10 ml IV Q8 [facility] Last Admin: 01/03/17 12:20 Dose: 10 ml Tamsulosin HCl (Flomax) 0.4 mg PO HS [facility] Last Admin: 04/27/16 20:37 Dose: 0.4 mg Trazodone HCl (Desyrel) 50 mg PO HSP PRN PRN Reason: Insomnia Medical - PN: A/P - Time Spent With Patient Total time spent is greater than 50% in coordination of care (as documented) at patient's floor/unit and/or counseling patient: - Narrative A/P Narrative: #1. Pulmonary. -This patient presents withsevere COPD exacerbation, with hypoxic respiratory failure.. He has been slow to respond to treatments and gets very anxious and then starts to refuse treatments. We're weaning steroids. Continue with bronchodilators and IV steroids and IV antibiotics. -the patient should have follow-up with pulmonary after discharge, regarding possible pulmonary fibrosis. #2. Infectious disease. -Right middle lobe pneumonia. Clinically improving.-1 bottle of blood cultures is growing coag-negative staph The patient seems to be doing well off of the vancomycin so I doubt this is a true bacteremia. #3.sepsis. Resolving. #4.Renal. Renal function is improving. #5. DVT prophylaxis: Subcutaneous heparin. #6. BPH. Continue Flomax. #7. CODE STATUS: Full code. this visit took approximately 30 minutes today, to review the patient's chart and test results, interview and examine him, review plan of care with nursing staff, and write orders. Medical - PN: Qual - VTE Deep Vein Thrombosis/Pulmonary Embolism Present on Admission: No
[2016-04-28] MEDS: 0.9 % SODIUM CHLORIDE 1,000 ML IV SCH (13:35)
[2016-04-28] MEDS: TAMSULOSIN 0.4 MG CAPSULE PO SCH (20:18)
[2016-04-28] MEDS: SENNOSIDES/DOCUSATE SODIUM 1 TAB TABLET PO SCH (20:19)
[2016-04-29] MEDS: IPRATROPIUM/ALBUTEROL 3 ML AMPUL.NEB NEB SCH ×6 (03:00→21:45)
[2016-04-29] MEDS: PIPERACILLIN SODIUM/TAZOBACTAM 3.375 GM in DEXTROSE 5% IN WATER 50 ML IV SCH ×4 (05:02→23:16)
[2016-04-29] MEDS: 0.9 % SODIUM CHLORIDE 10 ML SYRINGE IV SCH ×3 (05:02→23:17)
[2016-04-29 05:26] LABS: Mean Cell Volume 90.9 fL (80.0-100.0); Mean Corpuscular HGB Conc 31.3 g/dL (31.0-36.0); Mean Corpuscular Hemoglobin 28.5 pg (26.0-34.0); Platelet Count 307 K/mcL (140-440); RBC 5.32 M/mcL (4.50-5.90); Red Cell Distribution Width 14.3 % (11.5-14.5)
[2016-04-29 05:56] LABS: ALT/SGPT 39 U/l (0-40); Albumin 3.5 gm/dL (3.2-5.2); Albumin/Globulin Ratio 1.2 (1.0-2.3); Alkaline Phosphatase 73 U/L (39-117); Bilirubin,Direct < 0.2 mg/dL (0.0-0.3); Blood Urea Nitrogen 19 mg/dl (8-23); Gamma Glutamyl Transpeptidase 25 U/L (8-61); Magnesium 2.5 mg/dL (1.6-2.5); Phosphorous 4.4 mg/dL (2.7-4.5); Uric Acid 3.6 mg/dL (2.5-8.0)
[2016-04-29 07:40] LABS: Lymphocytes % 13 % (15-49); Monocytes % (Manual) 8 % (1-9); Platelet Estimate NORMAL (NORMAL); RBC Morphology NORMAL (NORMAL); Segmented Neutrophils % 79 % (38-78)
[2016-04-29] MEDS: BUDESONIDE 0.5 MG/2 ML AMPUL.NEB NEB SCH ×2 (07:40→18:50)
[2016-04-29] MEDS: PANTOPRAZOLE 40 MG TABLET PO SCH (08:05)
[2016-04-29] MEDS: HEPARIN 5,000 UNIT/ML VIAL SQ SCH ×2 (08:50→21:04)
[2016-04-29] MEDS: MULTIVIT,THER IRON,CA,FA & MIN 1 TABLET PO SCH (08:51)
[2016-04-29] MEDS: methylPREDNISolone SOD SUCC 125 MG/2 ML VIAL IV SCH (08:51)
[2016-04-29] MEDS: DOCUSATE SODIUM 100 MG CAPSULE PO SCH ×2 (08:51→21:06)
[2016-04-29] MEDS: LEVOFLOXACIN 750 MG/150 ML BAG IV SCH (10:18)
--- NOTE | 2016-04-29 12:07 | Internal Med Progress Note ---
Medical - PN: Subj Patient information: Note initiated : 04/29/16 at 12:07 pm Service Date, if different from initiated Date: [] Patient: Alhaji Cedillo 60 y/o M admitted on 04/25/16 for Shortness of Breath/ Severe Sepsis, Pneumonia. Chief Complaint: [] Interval history: 04/25- 60-year-old with a history of COPD admitted with with severe sepsis with acute organ dysfunction/right middle and lower lobe infiltrate/pneumonia, hypoxic respiratory failure along with COPD exacerbation. White count 13.3. ABG 7.39/52/63 on 4 L oxygen. admitted to telemetry. BiPAP for increased work of breathing. Continue steroids and antibiotics and close monitoring 04/26-patient unable to tolerate BiPAP due to increase work of breathing. However tachycardia improving from 130-100. On 3 L oxygen. very dyspneic and labored. Tachypneic at30s to 40s. On IV steroids and broad-spectrum antibiotics and bronchodilators. Continue close monitoring. White count down from 13.3-10 . Improving bandemia. T-Max 99 1/- patient feeling significantly short of breath however improved work of breathing tachycardia tachypnea oh last 24 hours. White count jumped from 10.8- 19.5 however improving bandemia. patient has been afebrile. improving chest x- ray with resolving atelectasis/infiltrate. Pulmonary fibrosis noted. labs and imaging discussed with patient including follow-up appointment with pulmonology for expert management of primary fibrosis/COPD. Continue Antibiotics/steroids and bronchodilators along with physical therapy. improving renal function. April 28, 2016: Nurses report this patient has been intermittently agitated over the last 24 hours. He is occasionally refusing his nebulizer treatments, claiming they make him cough and feel more short of breath. He refuses BiPAP. When I first went in this morning, he asked me to leave him alone so she could sleep. When I went back later in the day, he was more awake and feeling a bit better. He says he understands that the nebulizers are probably helping him but he did not like the mask at all. He has been switched to a pipe type device , and is tolerating that better. he otherwise denies fever or chills, chest pain or palpitations, abdominal pain, nausea or vomiting or diarrhea, or dysuria April 29, 2016: Today, the patient says he is feeling a bit better. However he is still having episodes of coughing spasms. She says these occur when he moves around too much or gets upset, he then starts to cough and can't stop, and that really aggravates his chronic neck pain. He requested a cough suppressant this evening, after declining earlier in the day. However he then said that he had a bad reaction to the guaifenesin with codeine before, so refused that. We have now started him on Tessalon. Otherwise,he denies current fever or chills,chest pain or palpitations. He continues to feel short of breath and continues to have a congested cough and wheezing. He is tolerating the nebulizer treatments better. He denies GI or symptoms. - Constitutional Vitals: Vital Signs Temp Pulse Resp BP Pulse Ox 98.8 F 100 H 18 148/92 94 04/29/16 08:00 04/29/16 08:00 04/29/16 08:00 04/29/16 08:00 04/29/16 08:00 Period Temp Pulse Resp BP Sys/Agarwal Pulse Ox Last 24 Hr 97.3 F-98.8 F 92-110 14-20 134-160/77-96 88-99 Intake and Output 04/28/16 04/29/16 04/29/16 21:59 05:59 13:59 Intake Total 50 / 50 700 / 700 Output Total 450 / 450 Balance -400 / -400 699 / 699 Weight 261 lb Intake & Output: Intake & Output 04/28/16 04/29/16 04/29/16 21:59 05:59 13:59 Intake Total 50 / 50 700 / 700 Output Total 450 / 450 Balance -400 / -400 699 / 699 Weight 261 lb Intake: IV 50 / 50 100 / 100 Dextrose 5% in Water 50 50 / 50 100 / 100 ml @ 100 mls/hr IV Q6H AB with Zosyn 3.375 gm Rx#:[id number] Oral 600 / 600 Output: Void Amount 450 / 450 # of times incontinent of urine Other: # Voids 1 300 # Bowel Movements 2 1 Exam: on exam, he seems a little less irritable than yesterday. He still has a moist sounding cough. Neck is supple without obvious lymphadenopathy or JVD. Cardiac exam shows regular rate and rhythm. Lung exam shows generally decreased breath sounds, with bilateral scattered crackles and wheezes. Abdomen abdomen is soft and nontender. Extremities show no significant edema. Medical - PN: Obj Da - Labs CBC & Chem 7: 04/29/16 04:10 04/29/16 04:10 Labs: Abnormal Lab Results 04/29/16 04/29/16 04/28/16 04:10 04:10 03:35 WBC 13.4 H RDW Seg Neutrophils % 79 H Band Neutrophils % Lymphocytes % 13 L Myelocytes % RBC Morphology Anisocytosis Chloride 95 L Carbon Dioxide 42 H* 37 H Anion Gap 4.0 L 7.0 L Creatinine 1.4 H 1.3 H Glucose 108 H ALT 47 H Lactate Dehydrogenase 350 H 329 H Triglycerides 215 H 198 H Vancomycin Trough 04/28/16 04/27/16 04/27/16 03:35 15:05 05:22 WBC 19.1 H RDW 14.7 H Seg Neutrophils % 81 H Band Neutrophils % Lymphocytes % 14 L Myelocytes % RBC Morphology Abnorm A Anisocytosis 1+ A Chloride Carbon Dioxide Anion Gap 17.0 H Creatinine Glucose 127 H ALT 48 H Lactate Dehydrogenase 383 H Triglycerides Vancomycin Trough 15.1 H 04/27/16 05:22 WBC 19.5 H RDW Seg Neutrophils % 83 H Band Neutrophils % 12 H Lymphocytes % 3 L Myelocytes % 1 H RBC Morphology Anisocytosis Chloride Carbon Dioxide Anion Gap Creatinine Glucose ALT Lactate Dehydrogenase Triglycerides Vancomycin Trough blood cultures from April 25 are growing coag-negative staph, which is felt to be contaminant.blood cultures from April 26, are no growth so far. chest x-ray from April 27, show cOPD with pulmonary fibrosis and resolving discoid atelectasis in the right lower lobe. Meds: Medications Acetaminophen (Tylenol) 650 mg PO Q4-6HP PRN PRN Reason: PAIN/FEVER > 101 Last Admin: 04/28/16 12:20 Dose: 650 mg Albuterol/Ipratropium (Duoneb) 3 ml NEB Q4HRT [facility] Last Admin: 04/29/16 11:15 Dose: Not Given Bisacodyl (Dulcolax) 10 mg [place] Q2-3DAYS PRN PRN Reason: Constipation Budesonide (Pulmicort) 0.5 mg NEB Q12 [facility] Last Admin: 04/29/16 07:40 Dose: 0.5 mg Docusate Sodium (Colace) 100 mg PO BID [facility] Last Admin: 04/29/16 08:51 Dose: 100 mg Guaifenesin/Codeine Phosphate (Robitussin Ac) 10 ml PO Q4HP PRN PRN Reason: Cough Last Admin: 04/27/16 10:49 Dose: 10 ml Heparin Sodium (Porcine) (Heparin) 5,000 unit SQ Q12 [facility] Last Admin: 04/29/16 08:50 Dose: 5,000 unit Levofloxacin (Levaquin) 750 mg in 150 mls @ 100 mls/hr IV Q24H [facility] Last Admin: 04/29/16 10:18 Dose: 100 mls/hr Magnesium Sulfate (Magnesium Sulfate) 2 gm in 50 mls @ 50 mls/hr IV UD PRN PRN Reason: MG = or < 1.7 Piperacillin Sod/Tazobactam (Sod 3.375 gm/ Dextrose) 50 mls @ 100 mls/hr IV Q6H [facility] Last Infusion: 04/29/16 05:24 Dose: Infused Iron Carb/Multivit/[place]/Folic Acid (Multivitamin W/Minerals) 1 tab PO DAILY [facility] Last Admin: 04/29/16 08:51 Dose: 1 tab Lorazepam (Ativan) 0.5 mg PO Q4HP PRN PRN Reason: ANXIETY/SEDATION Last Admin: 04/28/16 20:18 Dose: 0.5 mg Magnesium Hydroxide (Milk Of Magnesia) 30 ml PO BIDP PRN PRN Reason: Constipation Methylprednisolone Sodium Succinate (Solu-Medrol) 60 mg IV DAILY [facility] Last Admin: 04/29/16 08:51 Dose: 60 mg Ondansetron HCl (Zofran) 4 mg IV Q4-6HP PRN PRN Reason: Nausea And Vomiting Pantoprazole Sodium (Protonix) 40 mg PO QAMAC [facility] Last Admin: 04/29/16 08:05 Dose: 40 mg Mirabegron [ (Myrbetriq] 50 Mg Tab) 1 dose PO HS [facility] Last Admin: 04/28/16 20:18 Dose: 1 dose Mometasone Furoate [ (Asmanex Hfa] Inhaler) 4 dose INH BID [facility] Last Admin: 04/29/16 10:18 Dose: 4 dose Potassium Chloride (Klor-Con) 40 meq PO DAILYP PRN PRN Reason: K+ < 3.5 Senna/Docusate Sodium (Senna Plus Tablet) 1 tab PO HS [facility] Last Admin: 04/28/16 20:19 Dose: Not Given Sodium Chloride (Saline Flush) 10 ml IV Q8 [facility] Last Admin: 04/29/16 05:02 Dose: 10 ml Tamsulosin HCl (Flomax) 0.4 mg PO [facility] Last Admin: 04/28/16 20:18 Dose: 0.4 mg Trazodone HCl (Desyrel) 50 mg PO HSP PRN PRN Reason: Insomnia Medical - PN: A/P - Time Spent With Patient Total time spent is greater than 50% in coordination of care (as documented) at patient's floor/unit and/or counseling patient: - Narrative A/P Narrative: #1. Pulmonary. -This patient presents with severe COPD exacerbation, with hypoxic respiratory failure.. He has been slow to respond to treatments and gets very anxious and then starts to refuse treatments. We're weaning steroids. Continue with bronchodilators and IV steroids and IV antibiotics. -the patient should have follow-up with pulmonary after discharge, regarding possible pulmonary fibrosis. -leukocytosis is slowly improving -serum bicarbonate is elevated, likely due toCO2 retention and current oxygen therapy. We will try to keep his O2 saturations closer to 90%. #2. Infectious disease. -Right middle lobe pneumonia. Clinically improving.-1 bottle of blood cultures is growing coag-negative staph The patient seems to be doing well off of the vancomycin so I doubt this is a true bacteremia. #3.sepsis. Resolving. #4.Renal. Renal function is improving. #5. DVT prophylaxis: Subcutaneous heparin. #6. BPH. Continue Flomax. #7. CODE STATUS: Full code. his visit today took approximately 30 minutes, to review his test results, interview and examine him, reviewed plan of care with nurses, and write orders. Medical - PN: Qual - VTE Deep Vein Thrombosis/Pulmonary Embolism Present on Admission: No
[2016-04-29] MEDS: BENZONATATE 100 MG CAPSULE PO PRN (19:44)
[2016-04-29] MEDS: TAMSULOSIN 0.4 MG CAPSULE PO SCH (21:02)
[2016-04-29] MEDS: SENNOSIDES/DOCUSATE SODIUM 1 TAB TABLET PO SCH (21:06)
[2016-04-30] MEDS: IPRATROPIUM/ALBUTEROL 3 ML AMPUL.NEB NEB SCH ×6 (03:40→22:17)
[2016-04-30] MEDS: PIPERACILLIN SODIUM/TAZOBACTAM 3.375 GM in DEXTROSE 5% IN WATER 50 ML IV SCH ×3 (05:30→17:35)
[2016-04-30 05:55] LABS: Mean Corpuscular HGB Conc 31.4 g/dL (31.0-36.0); Mean Corpuscular Hemoglobin 28.6 pg (26.0-34.0); Platelet Count 296 K/mcL (140-440); RBC 5.43 M/mcL (4.50-5.90); Red Cell Distribution Width 14.4 % (11.5-14.5)
[2016-04-30 06:05] LABS: ALT/SGPT 33 U/l (0-40); Albumin 3.5 gm/dL (3.2-5.2); Albumin/Globulin Ratio 1.1 (1.0-2.3); Alkaline Phosphatase 66 U/L (39-117); Bilirubin,Direct < 0.2 mg/dL (0.0-0.3); Blood Urea Nitrogen 17 mg/dl (8-23); Gamma Glutamyl Transpeptidase 28 U/L (8-61); Magnesium 2.6 mg/dL (1.6-2.5); Phosphorous 4.8 mg/dL (2.7-4.5); Uric Acid 3.5 mg/dL (2.5-8.0)
[2016-04-30] MEDS: BUDESONIDE 0.5 MG/2 ML AMPUL.NEB NEB SCH ×2 (07:36→19:54)
[2016-04-30] MEDS: 0.9 % SODIUM CHLORIDE 10 ML SYRINGE IV SCH ×3 (07:54→20:17)
[2016-04-30 09:04] LABS: Band Neutrophils % 5 % (0-10); Lymphocytes % 10 % (15-49); Metamyelocytes % 3 % (0-0); Monocytes % (Manual) 3 % (1-9); Platelet Estimate NORMAL (NORMAL); RBC Morphology NORMAL (NORMAL); Segmented Neutrophils % 78 % (38-78)
[2016-04-30] MEDS: PANTOPRAZOLE 40 MG TABLET PO SCH (09:16)
[2016-04-30] MEDS: MULTIVIT,THER IRON,CA,FA & MIN 1 TABLET PO SCH (09:16)
[2016-04-30] MEDS: methylPREDNISolone SOD SUCC 125 MG/2 ML VIAL IV SCH (09:17)
[2016-04-30] MEDS: LEVOFLOXACIN 750 MG/150 ML BAG IV SCH (09:17)
[2016-04-30] MEDS: HEPARIN 5,000 UNIT/ML VIAL SQ SCH ×2 (09:18→20:17)
[2016-04-30] MEDS: DOCUSATE SODIUM 100 MG CAPSULE PO SCH ×2 (09:25→20:17)
[2016-04-30] MEDS ORDERED: MAG HYDROX/AL HYDROX/SIMETH 30 ML ORAL.SUSP PO PRN (12:01)
--- NOTE | 2016-04-30 13:21 | Internal Med Progress Note ---
Medical - PN: Subj Patient information: Note initiated : 04/30/16 at 1:21 pm Service Date, if different from initiated Date: [] Patient: Alhaji Cedillo 60 y/o M admitted on 04/25/16 for Shortness of Breath/ Severe Sepsis, Pneumonia. Chief Complaint: [] Interval history: 04/25- 60-year-old with a history of COPD admitted with with severe sepsis with acute organ dysfunction/right middle and lower lobe infiltrate/pneumonia, hypoxic respiratory failure along with COPD exacerbation. White count 13.3. ABG 7.39/52/63 on 4 L oxygen. admitted to telemetry. BiPAP for increased work of breathing. Continue steroids and antibiotics and close monitoring 04/26-patient unable to tolerate BiPAP due to increase work of breathing. However tachycardia improving from 130-100. On 3 L oxygen. very dyspneic and labored. Tachypneic at30s to 40s. On IV steroids and broad-spectrum antibiotics and bronchodilators. Continue close monitoring. White count down from 13.3-10 . Improving bandemia. T-Max 99 1/- patient feeling significantly short of breath however improved work of breathing tachycardia tachypnea oh last 24 hours. White count jumped from 10.8- 19.5 however improving bandemia. patient has been afebrile. improving chest x- ray with resolving atelectasis/infiltrate. Pulmonary fibrosis noted. labs and imaging discussed with patient including follow-up appointment with pulmonology for expert management of primary fibrosis/COPD. Continue Antibiotics/steroids and bronchodilators along with physical therapy. improving renal function. April 28, 2016: Nurses report this patient has been intermittently agitated over the last 24 hours. He is occasionally refusing his nebulizer treatments, claiming they make him cough and feel more short of breath. He refuses BiPAP. When I first went in this morning, he asked me to leave him alone so she could sleep. When I went back later in the day, he was more awake and feeling a bit better. He says he understands that the nebulizers are probably helping him but he did not like the mask at all. He has been switched to a pipe type device , and is tolerating that better. he otherwise denies fever or chills, chest pain or palpitations, abdominal pain, nausea or vomiting or diarrhea, or dysuria April 29, 2016: Today, the patient says he is feeling a bit better. However he is still having episodes of coughing spasms. She says these occur when he moves around too much or gets upset, he then starts to cough and can't stop, and that really aggravates his chronic neck pain. He requested a cough suppressant this evening, after declining earlier in the day. However he then said that he had a bad reaction to the guaifenesin with codeine before, so refused that. We have now started him on Tessalon. Otherwise,he denies current fever or chills,chest pain or palpitations. He continues to feel short of breath and continues to have a congested cough and wheezing. He is tolerating the nebulizer treatments better. He denies GI or symptoms. April 30, 2016: today, the patient is feeling better. He says his breathing feels like he is moving more air, and his O2 saturations have improved. He was having a lot of coughing spells last night, so we added Tessalon Perles, and he seems to be coughing less today. He is having some indigestion today and would like to address that. Otherwise, he denies fever or chills,chest pain or palpitations, abdominal pain, nausea or vomiting or diarrhea, dysuria. - Constitutional Vitals: Vital Signs Temp Pulse Resp BP Pulse Ox 97.1 F L 91 H 22 124/83 91 04/30/16 12:00 04/30/16 12:00 04/30/16 12:00 04/30/16 12:00 04/30/16 12:00 Period Temp Pulse Resp BP Sys/Agarwal Pulse Ox Last 24 Hr 97.1 F-98.2 F 72-105 16-22 124-147/80-94 2-97 Intake and Output 04/29/16 04/30/16 04/30/16 21:59 05:59 13:59 Intake Total 1230 / 1230 440 / 440 560 / 560 Output Total 250 / 250 Balance 1230 / 1230 440 / 440 310 / 310 Intake & Output: Intake & Output 04/29/16 04/30/16 04/30/16 21:59 05:59 13:59 Intake Total 1230 / 1230 440 / 440 560 / 560 Output Total 250 / 250 Balance 1230 / 1230 440 / 440 310 / 310 Intake: IV 100 / 100 50 / 50 200 / 200 Dextrose 5% in Water 50 100 / 100 50 / 50 50 / 50 ml @ 100 mls/hr IV Q6H AB with Zosyn 3.375 gm Rx#:[id number] Oral 1130 / 1130 390 / 390 360 / 360 Output: Void Amount 250 / 250 Other: Meal Dinner Breakfast Percent of Meal Consumed 100% 100% Feeding Ability Independent Independent # Voids 1 # Bowel Movements 1 Exam: on exam, he is sitting up on the side of his bed, and is more conversational today. He is in no acute distress. Neck is supple without obvious lymphadenopathy or JVD. Cardiac exam shows regular rate and rhythm. Lungs show improved air movement, with crackles at the bases. no significant wheezing is noted today. Abdomen soft and nontender. Extremities show no edema. Neurologic exam is grossly nonfocal. Medical - PN: Obj Da - Labs CBC & Chem 7: 04/30/16 04:28 04/30/16 04:28 Labs: Abnormal Lab Results 04/30/16 04/30/16 04/29/16 04:28 04:28 04:10 WBC 13.3 H RDW Seg Neutrophils % Lymphocytes % 10 L Metamyelocytes % 3 H Reactive Lymphocytes 4 H RBC Morphology Anisocytosis Chloride 95 L Carbon Dioxide 41 H* 42 H* Anion Gap 5.0 L 4.0 L Creatinine 1.4 H 1.4 H Glucose Phosphorus 4.8 H Magnesium 2.6 H ALT Lactate Dehydrogenase 399 H 350 H Triglycerides 202 H 215 H Vancomycin Trough 04/29/16 04/28/16 04/28/16 04:10 03:35 03:35 WBC 13.4 H 19.1 H RDW 14.7 H Seg Neutrophils % 79 H 81 H Lymphocytes % 13 L 14 L Metamyelocytes % Reactive Lymphocytes RBC Morphology Abnorm A Anisocytosis 1+ A Chloride Carbon Dioxide 37 H Anion Gap 7.0 L Creatinine 1.3 H Glucose 108 H Phosphorus Magnesium ALT 47 H Lactate Dehydrogenase 329 H Triglycerides 198 H Vancomycin Trough 04/27/16 15:05 WBC RDW Seg Neutrophils % Lymphocytes % Metamyelocytes % Reactive Lymphocytes RBC Morphology Anisocytosis Chloride Carbon Dioxide Anion Gap Creatinine Glucose Phosphorus Magnesium ALT Lactate Dehydrogenase Triglycerides Vancomycin Trough 15.1 H blood cultures from April 25 are growing coag-negative staph, which is felt to be contaminant.blood cultures from April 26, are no growth so far. chest x-ray from April 27, show cOPD with pulmonary fibrosis and resolving discoid atelectasis in the right lower lobe. Meds: Medications Acetaminophen (Tylenol) 650 mg PO Q4-6HP PRN PRN Reason: PAIN/FEVER > 101 Last Admin: 04/28/16 12:20 Dose: 650 mg Al Hydrox/Mg Hydrox/Simethicone (Maalox) 30 ml PO Q4HP PRN PRN Reason: Dyspepsia Last Admin: 04/30/16 12:40 Dose: 30 ml Albuterol/Ipratropium (Duoneb) 3 ml NEB Q4HRT [facility] Last Admin: 04/30/16 11:08 Dose: 3 ml Benzonatate (Tessalon) 200 mg PO TIDP PRN PRN Reason: Cough Last Admin: 04/29/16 19:44 Dose: 200 mg Bisacodyl (Dulcolax) 10 mg SD Q2-3DAYS PRN PRN Reason: Constipation Budesonide (Pulmicort) 0.5 mg NEB Q12 [facility] Last Admin: 04/30/16 07:36 Dose: 0.5 mg Docusate Sodium (Colace) 100 mg PO BID [facility] Last Admin: 04/30/16 09:25 Dose: Not Given Heparin Sodium (Porcine) (Heparin) 5,000 unit SQ Q12 [facility] Last Admin: 04/30/16 09:18 Dose: 5,000 unit Levofloxacin (Levaquin) 750 mg in 150 mls @ 100 mls/hr IV Q24H [facility] Last Infusion: 04/30/16 12:04 Dose: Infused Magnesium Sulfate (Magnesium Sulfate) 2 gm in 50 mls @ 50 mls/hr IV UD PRN PRN Reason: MG = or < 1.7 Piperacillin Sod/Tazobactam (Sod 3.375 gm/ Dextrose) 50 mls @ 100 mls/hr IV Q6H [facility] Last Admin: 04/30/16 12:39 Dose: 100 mls/hr Iron Carb/Multivit/[place]/Folic Acid (Multivitamin W/Minerals) 1 tab PO DAILY [facility] Last Admin: 04/30/16 09:16 Dose: 1 tab Lorazepam (Ativan) 0.5 mg PO Q4HP PRN PRN Reason: ANXIETY/SEDATION Last Admin: 04/28/16 20:18 Dose: 0.5 mg Magnesium Hydroxide (Milk Of Magnesia) 30 ml PO BIDP PRN PRN Reason: Constipation Methylprednisolone Sodium Succinate (Solu-Medrol) 60 mg IV DAILY [facility] Last Admin: 04/30/16 09:17 Dose: 60 mg Ondansetron HCl (Zofran) 4 mg IV Q4-6HP PRN PRN Reason: Nausea And Vomiting Pantoprazole Sodium (Protonix) 40 mg PO QAMAC [facility] Last Admin: 04/30/16 09:16 Dose: 40 mg Mirabegron [ (Myrbetriq] 50 Mg Tab) 1 dose PO [facility] Last Admin: 04/29/16 21:02 Dose: 1 dose Mometasone Furoate [ (Asmanex Hfa] Inhaler) 4 dose INH BID [facility] Last Admin: 04/30/16 09:16 Dose: 4 dose Potassium Chloride (Klor-Con) 40 meq PO DAILYP PRN PRN Reason: K+ < 3.5 Senna/Docusate Sodium (Senna Plus Tablet) 1 tab PO [facility] Last Admin: 04/29/16 21:06 Dose: Not Given Sodium Chloride (Saline Flush) 10 ml IV Q8 [facility] Last Admin: 04/30/16 12:40 Dose: 10 ml Tamsulosin HCl (Flomax) 0.4 mg PO [facility] Last Admin: 04/29/16 21:02 Dose: 0.4 mg Trazodone HCl (Desyrel) 50 mg PO HSP PRN PRN Reason: Insomnia Medical - PN: A/P - Time Spent With Patient Total time spent is greater than 50% in coordination of care (as documented) at patient's floor/unit and/or counseling patient: - Narrative A/P Narrative: #1. Pulmonary. -This patient presents with severe COPD exacerbation, with hypoxic respiratory failure.. He has been slow to respond to treatments and gets very anxious and then starts to refuse treatments. We're weaning steroids. -he is quite a bit improved today, and leukocytosis is also improving. We will continue with our current treatment plan. We might be able to consider sending him homewith IV or oral antibiotics and oral steroids tomorrow or the next day. -the patient should have follow-up with pulmonary after discharge, regarding possible pulmonary fibrosis. -serum bicarbonate is elevated, likely due to CO2 retention and current oxygen therapy. We will try to keep his O2 saturations closer to 90%. #2. Infectious disease. -Right middle lobe pneumonia. Clinically improving.-1 bottle of blood cultures is growing coag-negative staph The patient seems to be doing well off of the vancomycin so suspect this is a contaminant. #3.sepsis. Resolving. #4.Renal. Renal function is improving. #5. DVT prophylaxis: Subcutaneous heparin. #6. BPH. Continue Flomax. #7. CODE STATUS: Full code. #8. GI. -The patient has been complaining of indigestion today. He received Mylanta, but that does not seem to help much. We discussed either checking abdominal x- ray, or trying a dose of milk of magnesia this visit today took approximately 30 minutes, to review his test results, interview and examine him, reviewed plan of care with nurses, and write orders. Medical - PN: Qual - VTE Deep Vein Thrombosis/Pulmonary Embolism Present on Admission: No
[2016-04-30] MEDS: TAMSULOSIN 0.4 MG CAPSULE PO SCH (20:16)
[2016-04-30] MEDS: SENNOSIDES/DOCUSATE SODIUM 1 TAB TABLET PO SCH (20:17)
[2016-04-30] MEDS: diphenhydrAMINE 25 MG CAPSULE PO ONE ×2 (20:41→20:42)
[2016-04-30] MEDS ORDERED: diphenhydrAMINE 25 MG CAPSULE ONE (20:51)
[2016-05-01] MEDS: PIPERACILLIN SODIUM/TAZOBACTAM 3.375 GM in DEXTROSE 5% IN WATER 50 ML IV SCH ×4 (00:04→18:00)
[2016-05-01] MEDS: IPRATROPIUM/ALBUTEROL 3 ML AMPUL.NEB NEB SCH ×6 (03:48→23:35)
[2016-05-01] MEDS: 0.9 % SODIUM CHLORIDE 10 ML SYRINGE IV SCH ×3 (05:21→22:00)
[2016-05-01] MEDS: BUDESONIDE 0.5 MG/2 ML AMPUL.NEB NEB SCH ×3 (07:38→20:30)
[2016-05-01] MEDS ORDERED: predniSONE 20 MG TABLET PO SCH ×2 (08:00→18:42)
[2016-05-01] MEDS ORDERED: CALCIUM CARBONATE 500 MG TAB.CHEW CHEWED PRN (11:21)
[2016-05-01] MEDS: HEPARIN 5,000 UNIT/ML VIAL SQ SCH ×2 (11:56→20:24)
[2016-05-01] MEDS: PANTOPRAZOLE 40 MG TABLET PO SCH (11:56)
[2016-05-01] MEDS: MULTIVIT,THER IRON,CA,FA & MIN 1 TABLET PO SCH (11:56)
[2016-05-01] MEDS: DOCUSATE SODIUM 100 MG CAPSULE PO SCH ×2 (11:57→20:24)
[2016-05-01] MEDS: LEVOFLOXACIN 750 MG/150 ML BAG IV SCH (11:58)
--- NOTE | 2016-05-01 16:44 | Internal Med Progress Note ---
Medical - PN: Subj Patient information: Note initiated : 05/01/16 at 4:44 pm Service Date, if different from initiated Date: [] Patient: Alhaji Cedillo 60 y/o M admitted on 04/25/16 for Shortness of Breath/ Severe Sepsis, Pneumonia. Chief Complaint: [] Interval history: 04/25- 60-year-old with a history of COPD admitted with with severe sepsis with acute organ dysfunction/right middle and lower lobe infiltrate/pneumonia, hypoxic respiratory failure along with COPD exacerbation. White count 13.3. ABG 7.39/52/63 on 4 L oxygen. admitted to telemetry. BiPAP for increased work of breathing. Continue steroids and antibiotics and close monitoring 04/26-patient unable to tolerate BiPAP due to increase work of breathing. However tachycardia improving from 130-100. On 3 L oxygen. very dyspneic and labored. Tachypneic at30s to 40s. On IV steroids and broad-spectrum antibiotics and bronchodilators. Continue close monitoring. White count down from 13.3-10 . Improving bandemia. T-Max 99 1/- patient feeling significantly short of breath however improved work of breathing tachycardia tachypnea oh last 24 hours. White count jumped from 10.8- 19.5 however improving bandemia. patient has been afebrile. improving chest x- ray with resolving atelectasis/infiltrate. Pulmonary fibrosis noted. labs and imaging discussed with patient including follow-up appointment with pulmonology for expert management of primary fibrosis/COPD. Continue Antibiotics/steroids and bronchodilators along with physical therapy. improving renal function. April 28, 2016: Nurses report this patient has been intermittently agitated over the last 24 hours. He is occasionally refusing his nebulizer treatments, claiming they make him cough and feel more short of breath. He refuses BiPAP. When I first went in this morning, he asked me to leave him alone so she could sleep. When I went back later in the day, he was more awake and feeling a bit better. He says he understands that the nebulizers are probably helping him but he did not like the mask at all. He has been switched to a pipe type device , and is tolerating that better. he otherwise denies fever or chills, chest pain or palpitations, abdominal pain, nausea or vomiting or diarrhea, or dysuria April 29, 2016: Today, the patient says he is feeling a bit better. However he is still having episodes of coughing spasms. She says these occur when he moves around too much or gets upset, he then starts to cough and can't stop, and that really aggravates his chronic neck pain. He requested a cough suppressant this evening, after declining earlier in the day. However he then said that he had a bad reaction to the guaifenesin with codeine before, so refused that. We have now started him on Tessalon. Otherwise,he denies current fever or chills,chest pain or palpitations. He continues to feel short of breath and continues to have a congested cough and wheezing. He is tolerating the nebulizer treatments better. He denies GI or symptoms. April 30, 2016: today, the patient is feeling better. He says his breathing feels like he is moving more air, and his O2 saturations have improved. He was having a lot of coughing spells last night, so we added Tessalon Perles, and he seems to be coughing less today. He is having some indigestion today and would like to address that. Otherwise, he denies fever or chills,chest pain or palpitations, abdominal pain, nausea or vomiting or diarrhea, dysuria. May 01, 2016: Today, the patient says he is breathing feels a little tighter than yesterday. He has been able to tolerate just a half liter of oxygen today which keeps his O2 saturations in the 90-93 range..he is so frustrated with his slow recovery. He is not wanting to go home with oxygen, so would like to try to wean off of that tonight. He does still feel short of breath at times. He is still having intermittent indigestion, and says milk of magnesia and having a bowel movement did not seem to help.he reports that his stool was a little bit loose last night. Otherwise, he denies fevers or chills, sore throat. He is not having much in way of coughing spasms since starting on the Tessalon. he denies nausea or vomiting constipation, dysuria. He did call his operations lieutenant and asked him to call me so that we could discuss his discharge medications. we discussed that he may need to follow up with pulmonology to look into the possibility of pulmonary fibrosis, and the possible treatment options for that. He seems very resistant to this idea. - Constitutional Vitals: Vital Signs Temp Pulse Resp BP Pulse Ox 97.6 F 95 H 16 111/70 91 05/01/16 12:00 05/01/16 15:32 05/01/16 15:32 05/01/16 12:00 05/01/16 15:31 Period Temp Pulse Resp BP Sys/Agarwal Pulse Ox Last 24 Hr 97.1 F-97.6 F 76-121 6-22 111-139/70-89 91-94 Intake and Output 05/01/16 05/01/16 05/01/16 05:59 13:59 21:59 Intake Total 100 / 100 240 / 240 Balance 100 / 100 240 / 240 Weight 254 lb 3.2 oz Patient Weight 05/02/16 05:59 Weight 254 lb 3.2 oz Intake & Output: Intake & Output 05/01/16 05/01/16 05/01/16 05:59 13:59 21:59 Intake Total 100 / 100 240 / 240 Balance 100 / 100 240 / 240 Weight 254 lb 3.2 oz Intake: IV 100 / 100 Dextrose 5% in Water 50 100 / 100 ml @ 100 mls/hr IV Q6H AB with Zosyn 3.375 gm Rx#:[id number] Oral 240 / 240 Other: Meal Lunch Percent of Meal Consumed 100% Feeding Ability Independent # Voids 1 2 Exam: On exam,jarrod is sitting up on the side of his bed. He was leaning over his bedside table resting when I entered the room. He is in no acute distress, but does seem a little more irritable. Neck is supple without obvious JVD. Cardiac exam shows regular rate and rhythm. Lungs:Fairly clear at the bases, but there are decreased breath sounds in the upper lobe regions posteriorly. I do not hear any wheezing today. abdomen is protuberant, but soft. Extremities show no edema. Medical - PN: Obj Da - Labs CBC & Chem 7: 04/30/16 04:28 04/30/16 04:28 Labs: Abnormal Lab Results 04/30/16 04/30/16 04/29/16 04:28 04:28 04:10 WBC 13.3 H Seg Neutrophils % Lymphocytes % 10 L Metamyelocytes % 3 H Reactive Lymphocytes 4 H Chloride 95 L Carbon Dioxide 41 H* 42 H* Anion Gap 5.0 L 4.0 L Creatinine 1.4 H 1.4 H Phosphorus 4.8 H Magnesium 2.6 H Lactate Dehydrogenase 399 H 350 H Triglycerides 202 H 215 H 04/29/16 04:10 WBC 13.4 H Seg Neutrophils % 79 H Lymphocytes % 13 L Metamyelocytes % Reactive Lymphocytes Chloride Carbon Dioxide Anion Gap Creatinine Phosphorus Magnesium Lactate Dehydrogenase Triglycerides blood cultures from April 25 are growing coag-negative staph, which is felt to be contaminant.blood cultures from April 26, are no growth so far. chest x-ray from April 27, show cOPD with pulmonary fibrosis and resolving discoid atelectasis in the right lower lobe. CBC differential shows a normal granulocyte percentage today. Meds: Medications Acetaminophen (Tylenol) 650 mg PO Q4-6HP PRN PRN Reason: PAIN/FEVER > 101 Last Admin: 04/28/16 12:20 Dose: 650 mg Al Hydrox/Mg Hydrox/Simethicone (Maalox) 30 ml PO Q4HP PRN PRN Reason: Dyspepsia Last Admin: 04/30/16 12:40 Dose: 30 ml Albuterol/Ipratropium (Duoneb) 3 ml NEB Q4HRT [facility] Last Admin: 05/01/16 15:28 Dose: 3 ml Benzonatate (Tessalon) 200 mg PO TIDP PRN PRN Reason: Cough Last Admin: 04/29/16 19:44 Dose: 200 mg Bisacodyl (Dulcolax) 10 mg IA Q2-3DAYS PRN PRN Reason: Constipation Budesonide (Pulmicort) 0.5 mg NEB Q12 [facility] Last Admin: 05/01/16 07:38 Dose: 0.5 mg Calcium Carbonate/Glycine (Tums) 1,000 mg CHEWED Q4HP PRN PRN Reason: Dyspepsia Docusate Sodium (Colace) 100 mg PO BID [facility] Last Admin: 05/01/16 11:57 Dose: Not Given Heparin Sodium (Porcine) (Heparin) 5,000 unit SQ Q12 [facility] Last Admin: 05/01/16 11:56 Dose: Not Given Levofloxacin (Levaquin) 750 mg in 150 mls @ 100 mls/hr IV Q24H [facility] Last Admin: 05/01/16 11:58 Dose: 100 mls/hr Magnesium Sulfate (Magnesium Sulfate) 2 gm in 50 mls @ 50 mls/hr IV UD PRN PRN Reason: MG = or < 1.7 Piperacillin Sod/Tazobactam (Sod 3.375 gm/ Dextrose) 50 mls @ 100 mls/hr IV Q6H [facility] Last Admin: 05/01/16 11:58 Dose: 100 mls/hr Iron Carb/Multivit/[place]/Folic Acid (Multivitamin W/Minerals) 1 tab PO DAILY [facility] Last Admin: 05/01/16 11:56 Dose: 1 tab Lorazepam (Ativan) 0.5 mg PO Q4HP PRN PRN Reason: ANXIETY/SEDATION Last Admin: 04/28/16 20:18 Dose: 0.5 mg Magnesium Hydroxide (Milk Of Magnesia) 30 ml PO BIDP PRN PRN Reason: Constipation Last Admin: 04/30/16 17:35 Dose: 30 ml Ondansetron HCl (Zofran) 4 mg IV Q4-6HP PRN PRN Reason: Nausea And Vomiting [facility] Admin: 05/01/16 11:56 Dose: 40 mg Mirabegron [ (Myrbetriq] 50 Mg Tab) 1 dose PO [facility] Last Admin: 04/30/16 20:17 Dose: 1 dose Mometasone Furoate [ (Asmanex Hfa] Inhaler) 4 dose INH BID [facility] Last Admin: 05/01/16 11:58 Dose: 4 dose Potassium Chloride (Klor-Con) 40 meq PO DAILYP PRN PRN Reason: K+ < 3.5 Prednisone (Prednisone) 50 mg PO [facility] Last Admin: 05/01/16 11:57 Dose: 50 mg Senna/Docusate Sodium (Senna Plus Tablet) 1 tab PO [facility] Last Admin: 04/30/16 20:17 Dose: Not Given Sodium Chloride (Saline Flush) 10 ml IV Q8 [facility] Last Admin: 05/01/16 11:59 Dose: 10 ml Tamsulosin HCl (Flomax) 0.4 mg PO [facility] Last Admin: 04/30/16 20:16 Dose: 0.4 mg Trazodone HCl (Desyrel) 50 mg PO [facility] PRN PRN Reason: Insomnia Medical - PN: A/P - Time Spent With Patient Total time spent is greater than 50% in coordination of care (as documented) at patient's floor/unit and/or counseling patient: - Narrative A/P Narrative: #1. Pulmonary. -This patient presents with severe COPD exacerbation, with hypoxic respiratory failure.. He has been slow to respond to treatments and gets very anxious and then starts to refuse treatments. We're weaning steroids. -he is quite a bit improved today, and leukocytosis is also improving. We will continue with our current treatment plan. We might be able to consider sending him home with IV or oral antibiotics and oral steroids tomorrow or the next day. -the patient should have follow-up with pulmonary after discharge, regarding possible pulmonary fibrosis. he nurse and I had a prolonged discussion with the patient about this today, and he is very resistant to the idea, believing that his operations lieutenant should be able to handle his lung disease. We discussed that in order to diagnose the fibrosis, he might need to have a bronchoscopy, which would likely need to be done with pulmonary. -serum bicarbonate is elevated, likely due to CO2 retention and current oxygen therapy. We will try to keep his O2 saturations closer to 90%. #2. Infectious disease. -Right middle lobe pneumonia. Clinically improving.-1 bottle of blood cultures is growing coag-negative staph The patient seems to be doing well off of the vancomycin so suspect this is a contaminant. #3.sepsis. Resolving. #4.Renal. Renal function is improving. #5. DVT prophylaxis: Subcutaneous heparin. #6. BPH. Continue Flomax. #7. CODE STATUS: Full code. #8. GI. -The patient has been complaining of indigestion today. He received Mylanta,N milk of magnesia, and it is not clear that those have helped. Tums or Rolaids will be added.he continues on Protonix also. his visit took approximate 40 minutes today, to review patient's test results, interview and examine him discuss diagnoses and treatment options with him today , and then to review his case with his operations lieutenant by telephone, as well as write orders. Medical - PN: Qual - VTE Deep Vein Thrombosis/Pulmonary Embolism Present on Admission: No
[2016-05-01] MEDS: BENZONATATE 100 MG CAPSULE PO PRN (20:16)
[2016-05-01] MEDS: SENNOSIDES/DOCUSATE SODIUM 1 TAB TABLET PO SCH (20:24)
[2016-05-01] MEDS: TAMSULOSIN 0.4 MG CAPSULE PO SCH (20:24)
[2016-05-02] MEDS: PIPERACILLIN SODIUM/TAZOBACTAM 3.375 GM in DEXTROSE 5% IN WATER 50 ML IV SCH ×3 (00:12→12:46)
[2016-05-02] MEDS: IPRATROPIUM/ALBUTEROL 3 ML AMPUL.NEB NEB SCH ×3 (03:31→11:34)
[2016-05-02] MEDS: 0.9 % SODIUM CHLORIDE 10 ML SYRINGE IV SCH (05:32)
[2016-05-02 06:18] LABS: Basophils # (Auto) 0 K/mcL (0.0-0.3); Basophils % (Auto) 0.1 % (0.0-2.0); Eosinophils # (Auto) 0.1 K/mcL (0.0-0.7); Eosinophils % (Auto) 0.4 % (0.0-7.0); Granulocytes % (Auto) 86.4 % (38.0-78.0); Lymphocytes # (Auto) 1.5 K/mcL (1.5-4.8); Lymphocytes % (Auto) 9.6 % (15.5-49.0); Mean Cell Volume 90.9 fL (80.0-100.0); Mean Corpuscular HGB Conc 31.5 g/dL (31.0-36.0); Mean Corpuscular Hemoglobin 28.7 pg (26.0-34.0); Monocytes # (Auto) 0.5 K/mcL (0.1-0.9); Monocytes % (Auto) 3.5 % (1.0-9.0); Platelet Count 309 K/mcL (140-440); RBC 5.43 M/mcL (4.50-5.90); Red Cell Distribution Width 14.6 % (11.5-14.5)
[2016-05-02] MEDS: BUDESONIDE 0.5 MG/2 ML AMPUL.NEB NEB SCH (07:16)
[2016-05-02] MEDS: PANTOPRAZOLE 40 MG TABLET PO SCH (07:53)
[2016-05-02] MEDS: MULTIVIT,THER IRON,CA,FA & MIN 1 TABLET PO SCH (07:53)
[2016-05-02] MEDS: DOCUSATE SODIUM 100 MG CAPSULE PO SCH (07:54)
[2016-05-02] MEDS: HEPARIN 5,000 UNIT/ML VIAL SQ SCH (07:54)
[2016-05-02 07:57] LABS: ALT/SGPT 59 U/l (0-40); Albumin 3.7 gm/dL (3.2-5.2); Albumin/Globulin Ratio 1.3 (1.0-2.3); Alkaline Phosphatase 59 U/L (39-117); Blood Urea Nitrogen 24 mg/dl (8-23)
--- NOTE | 2016-05-02 10:22 | XRay Report ---
CLINICAL INFORMATION: Follow pneumonia increased white blood cell count COMPARISON: 04/27/2016 FINDINGS: Heart size, mediastinum and pulmonary vessels are normal. Severe COPD changes with bullous replacement of the upper lobes seen - as before. Scattered scarring in both mid and lower lung ramírez demonstrate long-term stability. No definite acute disease. No effusions IMPRESSION: Severe COPD changes with scattered scarring both mid and lower lungs. No acute disease Interpreted and Authenticated by: Gonzalo Quinonez 05/02/16
[2016-05-02] MEDS: LEVOFLOXACIN 750 MG/150 ML BAG IV SCH (11:00)
--- NOTE | 2016-05-02 12:37 | Discharge Summary ---
Medical - DS: Prov Patient information: Note initiated : 05/02/16 at 12:35 pm Service Date, if different from initiated Date: [] Patient: Alhaji Cedillo 60 y/o M admitted on 04/25/16 for Shortness of Breath/ Severe Sepsis, Pneumonia. Chief Complaint: [] Date of admission: 04/25/16 14:50 Discharge date: 05/02/16 Primary care physician: [Dr. Elva Hernandez phone [phone], boat garnisher: ] Admitting clinician: Vasquez Wadsworth Attending physician on discharge: Carol Morataya Medical - DS: Meds - Discharge Medications Prescriptions: Benzonatate [Tessalon] 200 mg PO TIDP PRN #20 capsule PRN Reason: Cough Famotidine/Ca Carb/Mag Hydrox [Pepcid Complete Tablet Chew] 1 each PO BID #30 tab.chew predniSONE [Prednisone] 10 mg PO DAILY #15 tablet Active and Home Medications: Home Medications Mirabegron [Myrbetriq] 50 mg PO HS 04/25/16 [History Confirmed 04/25/16 Last Taken 04/24/16 21:00] azithromycin 250 mg tablet 2 puff PO BID 04/25/16 [History Confirmed 04/25/16 Last Taken 04/25/16 08:00] predniSONE [Prednisone] 40 mg PO DAILY 04/25/16 [History Confirmed 04/25/16 Last Taken 04/24/16 08:00] Active Medications Acetaminophen (Tylenol) 650 mg PO Q4-6HP PRN PRN Reason: PAIN/FEVER > 101 Last Admin: 04/28/16 12:20 Dose: 650 mg Al Hydrox/Mg Hydrox/Simethicone (Maalox) 30 ml PO Q4HP PRN PRN Reason: Dyspepsia Last Admin: 04/30/16 12:40 Dose: 30 ml Albuterol/Ipratropium (Duoneb) 3 ml NEB Q4HRT AB Last Admin: 05/02/16 11:34 Dose: 3 ml Benzonatate (Tessalon) 200 mg PO TIDP PRN PRN Reason: Cough Last Admin: 05/01/16 20:16 Dose: 200 mg Bisacodyl (Dulcolax) 10 mg MN Q2-3DAYS PRN PRN Reason: Constipation Budesonide (Pulmicort) 0.5 mg NEB Q12 [facility] Last Admin: 05/02/16 07:16 Dose: 0.5 mg Calcium Carbonate/Glycine (Tums) 1,000 mg CHEWED Q4HP PRN PRN Reason: Dyspepsia Docusate Sodium (Colace) 100 mg PO BID [facility] Last Admin: 05/02/16 07:54 Dose: Not Given Heparin Sodium (Porcine) (Heparin) 5,000 unit SQ Q12 [facility] Last Admin: 05/02/16 07:54 Dose: Not Given Levofloxacin (Levaquin) 750 mg in 150 mls @ 100 mls/hr IV Q24H [facility] Last Infusion: 05/01/16 13:30 Dose: Infused Magnesium Sulfate (Magnesium Sulfate) 2 gm in 50 mls @ 50 mls/hr IV UD PRN PRN Reason: MG = or < 1.7 Piperacillin Sod/Tazobactam (Sod 3.375 gm/ Dextrose) 50 mls @ 100 mls/hr IV Q6H [facility] Last Admin: 05/02/16 05:32 Dose: 100 mls/hr Iron Carb/Multivit/Supervisor Sulfuric Acid Plant/Folic Acid (Multivitamin W/Minerals) 1 tab PO DAILY [facility] Last Admin: 05/02/16 07:53 Dose: 1 tab Lorazepam (Ativan) 0.5 mg PO Q4HP PRN PRN Reason: ANXIETY/SEDATION Last Admin: 04/28/16 20:18 Dose: 0.5 mg Magnesium Hydroxide (Milk Of Magnesia) 30 ml PO BIDP PRN PRN Reason: Constipation Last Admin: 04/30/16 17:35 Dose: 30 ml Ondansetron HCl (Zofran) 4 mg IV Q4-6HP PRN PRN Reason: Nausea And Vomiting Pantoprazole Sodium (Protonix) 40 mg PO QAMAC [facility] Last Admin: 05/02/16 07:53 Dose: 40 mg Mirabegron [ (Myrbetriq] 50 Mg Tab) 1 dose PO HS [facility] Last Admin: 05/01/16 20:23 Dose: 1 dose Mometasone Furoate [ (Asmanex Hfa] Inhaler) 4 dose INH BID [facility] Last Admin: 05/02/16 07:54 Dose: Not Given Potassium Chloride (Klor-Con) 40 meq PO DAILYP PRN PRN Reason: K+ < 3.5 Prednisone (Prednisone) 40 mg PO QAC AB Last Admin: 05/02/16 07:53 Dose: 40 mg Senna/Docusate Sodium (Senna Plus Tablet) 1 tab PO [facility] Last Admin: 05/01/16 20:24 Dose: Not Given Sodium Chloride (Saline Flush) 10 ml IV Q8 [facility] Last Admin: 05/02/16 05:32 Dose: 10 ml Tamsulosin HCl (Flomax) 0.4 mg PO [facility] Last Admin: 05/01/16 20:24 Dose: 0.4 mg Trazodone HCl (Desyrel) 50 mg PO HSP PRN PRN Reason: Insomnia Medical - DS: Hosp Hospital course: Mr. Cedillo is a 60 year old male May 02, 2016: Hospital course: This patient was admitted with sepsis, pneumonia superimposed on significant COPD. X-rays were also suggestive of underlying pulmonary fibrosis. He has been very slow to recover, and only today he was weaned off of his oxygen. He is finally now not having coughing spasms, and is not feeling so significantly short of breath with exertion. He is frustrated with having [facility] along, and would like very much to go home. He did have a talk with his boat garnisher yesterday, generally manages his COPD. I suggested that he see a depilatory painter at least once,to sort out if he does or does not have pulmonary fibrosis. Today, the patient says he is definitely feeling better. He is less short of breath and has less cough. His nurse tells me that he does desaturate at night , with O2 saturations less than 88% during sleep, but RT tells us that he still does not qualify for home oxygen, unless he has a sleep study. 04/25- 60-year-old with a history of COPD admitted with with severe sepsis with acute organ dysfunction/right middle and lower lobe infiltrate/pneumonia, hypoxic respiratory failure along with COPD exacerbation. White count 13.3. ABG 7.39/52/63 on 4 L oxygen. admitted to telemetry. BiPAP for increased work of breathing. Continue steroids and antibiotics and close monitoring /-patient unable to tolerate BiPAP due to increase work of breathing. However tachycardia improving from 130-100. On 3 L oxygen. very dyspneic and labored. Tachypneic at30s to 40s. On IV steroids and broad-spectrum antibiotics and bronchodilators. Continue close monitoring. White count down from 13.3-10 . Improving bandemia. T-Max 99 1/- patient feeling significantly short of breath however improved work of breathing tachycardia tachypnea oh last 24 hours. White count jumped from 10.8- 19.5 however improving bandemia. patient has been afebrile. improving chest x- ray with resolving atelectasis/infiltrate. Pulmonary fibrosis noted. labs and imaging discussed with patient including follow-up appointment with pulmonology for expert management of primary fibrosis/COPD. Continue Antibiotics/steroids and bronchodilators along with physical therapy. improving renal function. April 28, 2016: Nurses report this patient has been intermittently agitated over the last 24 hours. He is occasionally refusing his nebulizer treatments, claiming they make him cough and feel more short of breath. He refuses BiPAP. When I first went in this morning, he asked me to leave him alone so she could sleep. When I went back later in the day, he was more awake and feeling a bit better. He says he understands that the nebulizers are probably helping him but he did not like the mask at all. He has been switched to a pipe type device , and is tolerating that better. he otherwise denies fever or chills, chest pain or palpitations, abdominal pain, nausea or vomiting or diarrhea, or dysuria April 29, 2016: Today, the patient says he is feeling a bit better. However he is still having episodes of coughing spasms. She says these occur when he moves around too much or gets upset, he then starts to cough and can't stop, and that really aggravates his chronic neck pain. He requested a cough suppressant this evening, after declining earlier in the day. However he then said that he had a bad reaction to the guaifenesin with codeine before, so refused that. We have now started him on Tessalon. Otherwise,he denies current fever or chills,chest pain or palpitations. He continues to feel short of breath and continues to have a congested cough and wheezing. He is tolerating the nebulizer treatments better. He denies GI or symptoms. April 30, 2016: today, the patient is feeling better. He says his breathing feels like he is moving more air, and his O2 saturations have improved. He was having a lot of coughing spells last night, so we added Tessalon Perles, and he seems to be coughing less today. He is having some indigestion today and would like to address that. Otherwise, he denies fever or chills,chest pain or palpitations, abdominal pain, nausea or vomiting or diarrhea, dysuria. May 01, 2016: Today, the patient says he is breathing feels a little tighter than yesterday. He has been able to tolerate just a half liter of oxygen today which keeps his O2 saturations in the 90-93 range..he is so frustrated with his slow recovery. He is not wanting to go home with oxygen, so would like to try to wean off of that tonight. He does still feel short of breath at times. He is still having intermittent indigestion, and says milk of magnesia and having a bowel movement did not seem to help.he reports that his stool was a little bit loose last night. Otherwise, he denies fevers or chills, sore throat. He is not having much in way of coughing spasms since starting on the Tessalon. he denies nausea or vomiting constipation, dysuria. He did call his boat garnisher and asked him to call me so that we could discuss his discharge medications. we discussed that he may need to follow up with pulmonology to look into the possibility of pulmonary fibrosis, and the possible treatment options for that. He seems very resistant to this idea. assessment and plan: #1. Pulmonary. -This patient presents with severe COPD exacerbation, with hypoxic respiratory failure.. He has been slow to respond to treatments and gets very anxious and then starts to refuse treatments. We're weaning steroids. -e is improved today clinically, and I think is probably ready for discharge. I offered him home nebulizers, but he would like to try to go back to his usual inhalers, which include stiolto and Asmanex inhalers. -We will have him continue an oral prednisone taper.- -Blood cell count was a bit increased today, but I suspect that is from starting him on his oral prednisone. -he does have nighttime hypoxemia, and this should be evaluated further. Apparently we could not send him home from the hospital with oxygen until he is further evaluation. -the patient should have follow-up with pulmonary after discharge, regarding possible pulmonary fibrosis. his nurse and I had a prolonged discussion with the patient about this, and he is very resistant to the idea, believing that his boat garnisher should be able to handle his lung disease. We discussed that in order to diagnose the fibrosis, he might need to have a bronchoscopy, which would likely need to be done with pulmonary. -serum bicarbonate is elevated, likely due to CO2 retention and current oxygen therapy. We will try to keep his O2 saturations closer to 90%. we suggested that he consider getting a home oximeter, to help monitor. #2. Infectious disease. -Right middle lobe pneumonia. Clinically improving.-1 bottle of blood cultures is growing coag-negative staph The patient seems to be doing well off of the vancomycin so suspect this is a contaminant. -he has completed a seven-day course of IV Zosyn. #3.sepsis. Resolving. #4.Renal. Renal function improved, but today's BUN/creatinine are both just a smidgen higher. He needs to continue to orally hydrate. #5. DVT prophylaxis: Subcutaneous heparin. #6. BPH. Continue Flomax. #7. CODE STATUS: Full code. #8. GI. -The patient has been complaining of indigestion . He received Mylanta,N milk of magnesia, and it is not clear that those have helped. Tums or Rolaids will be added.he continues on Protonix also. - Time Spent with Patient Total time spent providing and/or coordinating discharge services: Greater than 30 minutes (was spent today, interviewing and examining the patient , reviewing test results, going over the reason for each medication with him in detail, and writing orders.) Medical - DS: Exam - Constitutional Vitals: Vital Signs Temp Pulse Pulse Resp BP BP Pulse Ox 05/02/16 11:36 85 16 05/02/16 08:00 98.5 F 98 H 20 120/77 93 05/02/16 07:20 98 H 16 05/02/16 04:06 91 H 05/02/16 04:00 97.3 F L 20 136/97 90 05/02/16 00:00 97.4 F L 20 133/86 90 05/01/16 23:49 94 H 18 05/01/16 21:30 91 05/01/16 21:03 83 L 05/01/16 20:00 97.0 F L 81 20 105/73 90 05/01/16 19:33 95 H 92 05/01/16 18:40 96 H 20 05/01/16 16:00 97.4 F L 106 H 22 136/88 90 05/01/16 15:32 95 H 16 05/01/16 15:31 94 H 91 Intake and Output 05/01/16 05/02/16 05/02/16 21:59 05:59 13:59 Intake Total 980 / 980 590 / 590 Output Total 75 / 75 Balance 980 / 980 590 / 590 -75 / -75 Intake: IV 100 / 100 50 / 50 Dextrose 5% in Water 50 100 / 100 50 / 50 ml @ 100 mls/hr IV Q6H AB with Zosyn 3.375 gm Rx#:[id number] Oral 880 / 880 540 / 540 Output: Void Amount 75 / 75 Other: Meal Lunch Percent of Meal Consumed 100% Feeding Ability Independent # Voids 1 1 # Bowel Movements 1 Weight 251 lb 4.8 oz Additional comments: on exam today, he is calmer and more cooperative. He does seem to feel better. Neck is supple without obvious lymphadenopathy or JVD. Cardiac exam shows regular rate and rhythm. Lungs have fairly decreased breath sounds throughout, but are essentially clear at the bases and more decreased in the upper lungs. No wheezing is noted today. Abdomen is soft and nontender. Extremities show no edema. Medical - DS: Data Labs on day of discharge: Labs from last 24 hours 05/02/16 05/02/16 05/02/16 07:00 03:30 03:30 WBC 15.6 H RBC 5.43 Hgb 15.6 Hct 49.3 MCV 90.9 MCH 28.7 MCHC 31.5 RDW 14.6 H Plt Count 309 MPV 8.1 Gran % 86.4 H Lymph % (Auto) 9.6 L [place] % (Auto) 3.5 Eos % (Auto) 0.4 Baso % (Auto) 0.1 Gran # 13.5 H Lymph # 1.5 [place] # 0.5 Eos # 0.1 Baso # 0 Sodium 138 Not Reportable Potassium 4.4 Not Reportable Chloride 95 L Not Reportable Carbon Dioxide 31 H Not Reportable Anion Gap 12.0 Not Reportable BUN 24 H Not Reportable Creatinine 1.5 H Not Reportable GFR Calculation 49 Not Reportable Glucose 110 H TNP Calcium 9.5 Not Reportable Total Bilirubin 0.4 Not Reportable AST 41 H Not Reportable ALT 59 H Not Reportable Alkaline Phosphatase 59 Not Reportable Total Protein 6.6 Not Reportable Albumin 3.7 Not Reportable Globulin 2.9 Not Reportable Albumin/Globulin Ratio 1.3 Not Reportable blood cultures from April 25 are growing coag-negative staph, which is felt to be contaminant.blood cultures from April 26, are no growth so far. sputum culture showed only normal [place]. chest x-ray from April 27, show cOPD with pulmonary fibrosis and resolving discoid atelectasis in the right lower lobe. 05/02/16: Chest x-ray:Severe COPD changes with bolus replacement of the upper lobes are seen. There is scattered scarring in both mid and lower lung ramírez. There is no acute disease noted. Medical - DS: A/P - Patient/Caregiver Discharge Instructions Activity: increase activity as tolerated Diet: Low Fat Additional Instructions: #1. Pneumonia appears resolved. please resume your inhalers, including the Asmanex, and the Stiolto nhaler, as prescribed by . #2.your oxygen levels dipped below 88% at night, while you are asleep. It did not appear that your insurance would cover oxygen to use at home at night, but you should follow up with her primary care physician, to see if this would be covered, or to see if he should be referred for further testing, such as a sleep study. #3. for your indigestion, I would suggest he try Pepcid Complete 1 tablet twice a day until this issue is resolved. if this does not improve, please review with your doctor. #4. Possible pulmonary fibrosis, as evidenced on chest x-ray. Please have your doctor refer you to a depilatory painter for further evaluation. #5. It would be a good idea to buy an oximeter. This would help you to monitor your oxygen levels at home. #6. We have asked our home health nurses to cannot hear home to check on U, to be sure that you're doing well. #7.you can still use here Proventil (albuterol) inhaler as needed for any immediate relief of shortness of breath. discharge medications should include: Stiolto inhaler as directed Asmanex inhaler puffs twice a day Proventil inhaler 2 puffsevery 4 hours as needed. Myrbetriq 50 mg daily at bedtime Tamsulosin 0.4 mg daily at bedtime Prednisone taper: 30 mg Wednesday and Wednesday, 20 mgWednesday and Wednesday, then decrease to 10 mg a day, and verify with your doctor when he wants to stop. Senna plus docusate stool softener 1 tab at bedtime as neededPepcid Complete 1 tablet twice a day for indigestion Docusate sodium 100 mg twice a day for constipation Dulcolax suppository as needed for constipation Benzonatate perles 200 mg 3 times a day as needed for cough Tylenol 650 mg every 6 hours as needed Prescriptions: Benzonatate [Tessalon] 200 mg PO TIDP PRN #20 capsule PRN Reason: Cough Famotidine/Ca Carb/Mag Hydrox [Pepcid Complete Tablet Chew] 1 each PO BID #30 tab.chew predniSONE [Prednisone] 10 mg PO DAILY #15 tablet - Follow up Plan Follow up with: Brandon Ingram MD [Physician] - 05/05/16 12:00 pm (Continue with previously scheduled appointment.) Elva Hernandez DO [Primary Care Provider] - 05/21/16 1:00 pm (Continue with your previous appointment scheduled on May 21 @ 1:00pm for established care with your PCP Dr. Hernandez.) Disposition: Home Health Service Prognosis: Good Rehab Potential: Good I certify that the patient requires SNF services: No Overall status at discharge: patient is progressing back to baseline Medical - DS: Qual - VTE Deep Vein Thrombosis/Pulmonary Embolism Present on Admission: No
== END 2016-05-02 13:45 | disposition home health service (06) | DRG 871 ==
LOC: ED 11:57 → ICU 14:50 → SUATTDRO 14:50
PROVIDERS: ADMIT Internal Medicine; ATTEND Internal Medicine